=== PATIENT | female | born 1945 | race Caucasian/White ===

== ENCOUNTER 2025-03-13 10:22 | Inpatient (IN) | payer MEDICARE, SELFPAY ==
[2025-03-13] VITALS (16 sets, daily range): BP systolic 120–166; BP diastolic 71–135; PULSE 78–196; RESP 18–90; TEMP 36.3–37.2; O2SAT 89–97; BMI 31.4; BMI 27.3
--- NOTE | 2025-03-13 10:33 | PD.EDWEAK ---
ED Weakness RME/HPI General Chief complaint: Fall Stated complaint: WEAKNESS Time Seen by Provider: 03/13/25 10:33 Arrival date/time: 03/13/25 10:22 RME / HPI RME / HPI Narrative: 79 year old female with history of hypertension, s/p right hip replacement, chronic pain on Gabapentin presents to the ED BIBA from home for evaluation of weakness today. Per medics, patient reported having two ground level falls 3 days ago and since then feels left-sided heaviness . States this morning had difficulty getting out of bed, prompting ED visit. 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 States patient was given 6mg of Adenosine with no change. In the ED, patient reports 3 days ago while outside of her home her knees buckled causing her to slowly fall down; no head injury reported at that time. States she was able to get up and again while inside of her home, her knees buckled and fell. Denies any unilateral weakness, change in vision or speech. Denied any LOC 3 days ago. Denies recent illness, fevers, chills, chest pain, cough, shortness of breath, abdominal pain, n/v/d, or urinary symptoms. Related Data Allergies Allergy/AdvReac Type Severity Reaction Status Date / Time No Known Allergies Allergy Verified 03/13/25 10:32 Review of Systems Review of Systems Systems Reviewed: All systems reviewed, normal except as documented Past Medical History Past Medical History CARDIAC: Positive Hypertension MUSCULOSKELETAL: Positive Musculoskeletal Disorders and Fractures (rt hip) Surgical History SURGICAL: Positive Hip Sx Social History SMOKING STATUS: Never smoker ED Exam Narrative Physical exam: GENERAL APPEARANCE: alert and oriented x 4, well-developed, well-nourished, no acute distress HEENT: Normocephalic, atraumatic; pupils equal, round, reactive to light; EOMI; mucous membranes pink, moist; oropharynx clear NECK: Supple LUNGS: CTABL; no wheezes, no rales, no rhonchi HEART: tachycardic, irregularly irregular; normal S1, S2; no murmurs ABDOMEN: non distended; normal BS; soft, no tenderness, no guarding, no rebound; no masses, no organomegaly, no hernia BACK: no CVA tenderness EXTREMITIES: atraumatic; no edema NEUROLOGIC: awake; alert and oriented x4; cranial nerves II-XII grossly intact; no focal sensory or motor deficits PSYCHIATRIC: appropriate mood and affect SKIN: warm, dry, normal color; no rashes Course Quality Measures none Orders Category Date Time Status Biomedical Equipment Technician NOW Care 03/13/25 10:55 Active EKG (ED ONLY) *Do not use* NOW Care 03/13/25 10:29 Completed EKG (ED ONLY) *Do not use* NOW Care 03/13/25 10:55 Completed Insert IV NOW Care 03/13/25 10:29 Active EKG (ED Only) Stat Exams 03/13/25 10:29 Ordered EKG (ED Only) Stat Exams 03/13/25 10:55 Ordered XR chest 1V portable Stat Exams 03/13/25 10:55 Completed B-Type Natriuretic Peptide Stat Lab 03/13/25 10:37 Completed CBC Stat Lab 03/13/25 10:37 Completed CMP [Comprehensive Metabolic Panel] Stat Lab 03/13/25 10:37 Completed Magnesium Stat Lab 03/13/25 10:37 Completed Partial Thromboplastin Time Stat Lab 03/13/25 10:37 Completed Prothrombin Time with INR Stat Lab 03/13/25 10:37 Completed Troponin I Stat Lab 03/13/25 10:37 Completed DILTIAZEM in D5W 125 MG Med 03/13/25 10:34 Discontinued 125 mg in 125 ml IV .STK-MED DILTIAZEM in D5W 125 MG Med 03/13/25 10:30 Active 125 mg in 125 ml IV 5 mg/hr Diltiazem Inj [Cardizem Inj] Med 03/13/25 10:29 Discontinued 15 mg IV X1 ONE Diltiazem Inj [Cardizem Inj] Med 03/13/25 10:34 Discontinued 25 mg .ROUTE .STK-MED ONE Metoprolol Tartrate Inj [Lopressor Inj] Med 03/13/25 13:14 Discontinued 5 mg IVP X1 ONE Vital Signs Vital signs: Vital Signs Pulse Rate 178 H 03/13/25 10:37 Blood Pressure 166/135 H 03/13/25 10:37 Weakness MDM Narrative MDM Narrative:: Herlinda Chahal am scribing for and in the presence of Dr. Manzo. Patient data External records reviewed:: EMS form Clinical information provided by:: patient and EMS Social determinants that could affect healthcare access:: none Patient has the following chronic illnesses:: HTN, s/p right hip replacement How is presenting disease/condition affected by chronic disease/condition?: exacerbated by Evaluation data The following diagnostics were reviewed and interpreted by me:: lab results, radiology exam(s) and EKG tracing(s) (EKG @ 10:25h, atrial fibrillation with RVR, rate 179, no STEMI. ) Lab and/or radiology exams considered but not ordered:: None Interpretation Summary: Ordering Physician: Chelsy Manzo MD Date of Service: 03/13/25 Procedure(s): XR chest 1V portable Accession Number(s): [id number] cc: Leif Banuelos MD; Chelsy Manzo MD~ Examination: AP chest single view TECHNIQUE: Upright AP chest portable single view Date and time: March 13, 2025 1112 hours INDICATIONS: Chest pain today. FINDINGS: Minimal prominence left ventricle Accentuation of the perihilar markings bilaterally Left axillary surgical clips Severe osteopenia IMPRESSION: Bilateral perihilar opacity worse in the left perihilar region, differential would include pneumonia, pulmonary edema, clinical correlation advised Dictated By: Leif Banuelos MD Signed By: <Electronically signed by Leif Banuelos MD in OV> 03/13/25 1137 Medications / Prescriptions Medications or Prescriptions considered but not ordered:: None Medication administrations:: Medication Administration History Acetaminophen (Acetaminophen 325 Mg Tablet) 650 mg PO Q6H PRN PRN Reason: Fever >100.4 or Pain 1-3 Stop: 04/12/25 13:18 Heparin Sodium (Porcine) (Heparin Sod Inj 5000 Unit/Ml Vial) 5,000 unit SC Q8HR [facility] Stop: 03/27/25 13:59 Last Admin: 03/13/25 13:44 Dose: 5,000 unit Documented By: FLORES Co-signed By: DB Diltiazem HCl (Diltiazem In D5w 125 Mg) 125 mg in 125 mls @ 5 mls/hr IV .Q24H [facility] Stop: 04/12/25 10:29 Last Infusion: 03/13/25 11:41 Dose: 15 mg/hr, 15 mls/hr Documented By: Infusion: 03/13/25 11:25 Dose: 10 mg/hr, 10 mls/hr Documented By: Infusion: 03/13/25 11:01 Dose: 7 mg/hr, 7 mls/hr Documented By: Admin: 03/13/25 10:38 Dose: 5 mg/hr, 5 mls/hr Documented By: FLORES Ondansetron HCl (Ondansetron Inj 2 Mg/Ml Inj 2 Ml) 4 mg IVP Q6H PRN; Protocol PRN Reason: NAUSEA OR VOMITING Stop: 04/12/25 13:18 Discontinued Medications Diltiazem HCl (Diltiazem Inj 5 Mg/Ml Vial 5 Ml) 15 mg IV X1 ONE; Protocol Stop: 03/13/25 10:30 Last Admin: 03/13/25 10:37 Dose: 15 mg Documented By: FLORES Diltiazem HCl (Diltiazem Inj 5 Mg/Ml Vial 5 Ml) Confirm Administered Dose 25 mg .ROUTE .STK-MED ONE Stop: 03/13/25 10:35 Last Admin: 03/13/25 10:46 Dose: Not Given Documented By: DAEdelmira Non-Admin Reason: Override Medication Diltiazem HCl (Diltiazem In D5w 125 Mg) Confirm Administered Dose 125 mg in 125 mls @ ud IV .STK-MED ONE Stop: 03/13/25 10:35 Last Admin: 03/13/25 10:44 Dose: Not Given Documented By: DAA Non-Admin Reason: Override Medication Metoprolol Tartrate (Metoprolol Tartrate Inj 1 Mg/Ml Amp 5 Ml) 5 mg IVP X1 ONE Stop: 03/13/25 13:15 Last Admin: 03/13/25 13:44 Dose: 5 mg Documented By: FLORES See above Consultations Consultation(s) initiated? (list below): No Diagnosis Weakness Differential Diagnosis: acute myocardial infarction, anemia, hypoglycemia, hypothyroidism, sepsis and dehydration Most likely diagnosis given after review of the tests above:: New onset atrial fibrillation with RVR Admission Indicated Admission indicated?: indicated Admission Request Was there a request for admission?: Yes Admission Attestation Admission request attestation: Discussed case with [] from Hospitalist service regarding admission. Discussed patients ED course, exam findings, labs, and radiology results. The Hospitalist [agrees,declines] to accept the patient for admission. Disposition Plan Disposition Plan: Admit Critical Care Time Critical Care Time Critical Care Time: Yes Total Critical Care Time (min.): 35 Attestation: The high probability of sudden, clinically significant deterioration in the patient's condition required the highest level of my preparedness to intervene urgently. The services I provided to this patient were to treat and/or prevent clinically significant deterioration. Services included the following: chart data review, reviewing nursing notes and/or old charts, documentation time, market intelligence consultant collaboration regarding findings and treatment options, medication orders and management, direct patient care, vital sign assessments and ordering, interpreting and reviewing diagnostic studies and lab tests. Aggregate critical care time includes only time during which I was engaged in work directly related to the patient's care, as described above, whether at bedside or elsewhere in the Emergency Department. It did not include time spent performing other reported procedures or the services of residents, students, nurses or physician assistants. Discharge Plan Plan Patient Disposition: Admit Acute Care w/in Hospital Problem List Clinical Impression: New onset a-fib
[2025-03-13] MEDS: DILTIAZEM INJ 5 MG/ML VIAL 5 ML 15 MG IV (10:37)
[2025-03-13] MEDS: DILTIAZEM in D5W 125 MG 125 MG/125 ML BAG IV (10:38)
--- NOTE | 2025-03-13 10:55 | XR_ITS ---
Examination: AP chest single view TECHNIQUE: Upright AP chest portable single view Date and time: March 13, 2025 1112 hours INDICATIONS: Chest pain today. FINDINGS: Minimal prominence left ventricle Accentuation of the perihilar markings bilaterally Left axillary surgical clips Severe osteopenia IMPRESSION: Bilateral perihilar opacity worse in the left perihilar region, differential would include pneumonia, pulmonary edema, clinical correlation advised
--- NOTE | 2025-03-13 11:00 | PC.NURSE ---
pt brought in by ems due to weakness with left side weakness that has been for about 2 wk per pt. pt heart rate is rapid rate and irreg on monitor at 160-200bpm with ems. pt placed on defib pad and monitor at rate 160-180, pt is gcs of 15 and A&Ox4. pt also stated that she had fall x2 in the past few days and hit back of head. no bump or wound noted. pt has hx of htn. pt has denies pain but has some sob with movement. at bedside.
[2025-03-13 11:10] LABS: Basophils # (Auto) 0.1 Thou/mm3 (0.0-0.2); Basophils % (Auto) 1 % (0-2.5); Eosinophils # (Auto) 0.2 Thou/mm3 (0.0-0.5); Eosinophils % (Auto) 2 % (0-10); Hematocrit 35.1 % (36.0-46.0); Hemoglobin 11.7 g/dL (12.0-16.0); Immature Granulocytes Auto 0.01 Thou/mm3 (0.00-0.00); Lymphocytes # (Auto) 3.3 Thou/mm3 (1.0-4.8); Lymphocytes % (Auto) 37 % (10-50); Mean Corpuscular HGB Conc 33.3 g/dl (31.0-37.0); Mean Corpuscular Hemoglobin 32.3 pg (25.0-35.0); Mean Corpuscular Volume 97 fL (80-100); Monocytes # (Auto) 1.0 Thou/mm3 (0.0-0.8); Monocytes % (Auto) 11 % (0-12); Neutrophils # (Auto) 4.3 Thou/mm3 (1.8-7.7); Neutrophils % (Auto) 49 % (37-80); Nucleated Red Blood Cell # 0.00 Thou/mm3 (0.00-0.00); Nucleated Red Blood Cell % 0 /100 WBC (0); Platelet Count 228 Thou/mm3 (140-440); RDW Standard Deviation 47.7 fL (36.4-46.3); Red Blood Count 3.62 Miln/mm3 (4.00-5.20); White Blood Count 8.9 Thou/mm3 (3.6-11.0)
[2025-03-13 11:29] LABS: Alanine Aminotransferase 14 U/L (10-49); Albumin, Serum 4.3 gm/dL (3.4-4.8); Albumin/Globulin Ratio 1.4 (1.2-2.2); Alkaline Phosphatase 55 U/L (46-116); Anion Gap 13 (7-16); Aspartate Amino Transferase 23 U/L (0-34); BUN/Creatinine Ratio 10 Ratio (12-20); Bilirubin,Total 0.6 mg/dL (0.3-1.2); Blood Urea Nitrogen 10 mg/dL (9-23); Calcium 9.4 mg/dL (8.3-10.6); Calcium (Corrected) 9.4 mg/dL (8.5-10.1); Carbon Dioxide 23.2 mMol/L (20.0-31.0); Chloride 106 mMol/L (98-107); Creatinine (Component) 1.0 mg/dL (0.6-1.3); Estimated Creatinine Clearance 41.4 mL/min (>60); Globulin 3.1 gm/dL (2.3-3.5); Glucose 102 mg/dL (74-106); Magnesium 2.0 mg/dL (1.6-2.6); Osmolality,Calculated 282 (275-295); Potassium 3.9 mMol/L (3.4-5.1); Sodium 142 mMol/L (136-145); Total Protein 7.4 gm/dL (5.7-8.2); Troponin I < 0.020 ng/mL (0.0-0.045); eGFR 58 See Note
[2025-03-13 11:31] LABS: INR 1.0 (0.9-1.3); Partial Thromboplastin Time 24.7 Seconds (22.0-36.0); Prothrombin Time 11.3 Seconds (9.0-12.2)
[2025-03-13 11:38] LABS: B-Type Natriuretic Peptide 504 pg/mL (0-100)
--- NOTE | 2025-03-13 11:41 | PC.NURSE ---
pt heart rate not decreasing with iv medication heart rate still afib rvr jumping to 120-160 bpm. md aware and pt increased diltiazem to 15mg/hr per md order. pt placed on 2l o2 due to pt c/o sob, bp 120/84
--- NOTE | 2025-03-13 13:22 | ECHO_ITS ---
Transthoracic Echo Report Ht (in): 60 Wt (lb): 160 Exam Location: Echo Lab Status: Emergency Dry Wall Finisher: Rosalba Figueredo Indications: Procedure Performed: BP: 162 / 111 HR: MEASUREMENTS (Male / Female) Normal Values 2D ECHO LV Diastolic Diameter PLAX 4.7 cm 4.2 - 5.9 / 3.9 - 5.3 cm LV Systolic Diameter PLAX 2.7 cm IVS Diastolic Thickness 1.0 cm 0.6 - 1.0 / 0.6 - 0.9 cm LVPW Diastolic Thickness 0.9 cm 0.6 - 1.0 / 0.6 - 0.9 cm LV Relative Wall Thickness 0.4 LVOT Diameter 1.6 cm Aortic Root Diameter 3.1 cm LA Systolic Diameter LX 3.1 cm 3.0 - 4.0 / 2.7 - 3.8 cm LV Ejection Fraction MOD BP 57.9 % >= 55 % LV Ejection Fraction MOD 4C 65.2 % LV Ejection Fraction 4C AL 66.4 % LV Ejection Fraction MOD 2C 51.2 % LV Ejection Fraction 2C AL 50.4 % LA Volume Index 17.8 cm?/m? 16 - 28 cm?/m? M-MODE Aortic Root Diameter MM 2.4 cm LA Systolic Diameter MM 2.8 cm LA Ao Ratio MM 1.2 AV Cusp Separation MM 0.9 cm DOPPLER AV Peak Velocity 124.2 cm/s AV Peak Gradient 6.2 mmHg AV Mean Gradient 3.3 mmHg AV Velocity Time Integral 27.7 cm LVOT Peak Velocity 65.9 cm/s LVOT Peak Gradient 1.7 mmHg LVOT Velocity Time Integral 17.2 cm AV Area Cont Eq vti 1.2 cm? AV Area Cont Eq pk 1.1 cm? MR Peak Velocity 598.0 cm/s MR Peak Gradient 143.0 mmHg LV E' Lateral Velocity 9.9 cm/s LV E' Septal Velocity 9.3 cm/s TR Peak Velocity 252.0 cm/s TR Peak Gradient 25.4 mmHg PV Peak Velocity 61.1 cm/s PV Peak Gradient 1.5 mmHg FINDINGS Left Ventricle Normal left ventricular size, wall thickness, systolic function with no obvious regional wall motion abnormalities.The ejection fraction is visually estimated at 55-60 %. Unable to evaluate diastolic function due to atrial fibrillation. Right Ventricle The right ventricle is normal in size and systolic function is moderately decreased. Left Atrium The left atrium is normal by two-dimensional, color flow and Doppler imaging with no structural abnormalities, no thrombus formation present. Right Atrium The right atrium is normal by two-dimensional imaging, color flow and Doppler imaging with no structural abnormalities, no thrombus formation present. Atrial Septum The interatrial septum appears normal with no evidence of a shunt. Aorta The aorta is normal by two-dimensional, color flow and Doppler interrogation. Mitral Valve The mitral valve is normal by two-dimensional, color flow and Doppler interrogation. [id number] mitral regurgitation. Aortic Valve The aortic valve is trileaflet and normal by two-dimensional, color flow and Doppler interrogation. Trace to mild aortic valve regurgitation. Tricuspid Valve The tricuspid valve is normal by two-dimensional, color flow and Doppler interrogation. There is mild tricuspid valve regurgitation. Pulmonic Valve The pulmonic valve is not well visualized. There is no significant pulmonic valve regurgitation. Vessels The pulmonary artery appears normal. The inferior vena cava pulmonary and hepatic veins appear normal. Pericardium The pericardium is normal by two-dimensional imaging. There is no significant pericardial effusion. CONCLUSIONS Indication: New onset A-Fib RVR Normal LV size and wall thickness. Estimated EF at 55-60 %. Unable to evaluate diastolic function due to atrial fibrillation. The RV is normal in size and systolic function is mildly decreased. [id number] MR. Trace to mild AI. Mild TR. Moderate AV sclerosis without stenosis. Trace pericardial effusion without tamponade. Stalin Alonzo (Electronically Signed) Final Date: 14 March 2025 21:27
[2025-03-13] MEDS: METOPROLOL TARTRATE INJ 1 MG/ML AMP 5 ML 5 MG IVP (13:44)
[2025-03-13] MEDS: HEPARIN SOD INJ 5000 UNIT/ML VIAL SC ×2 (13:44→21:14)
--- NOTE | 2025-03-13 14:05 | ESHP_ITS ---
<Statement entered by Tracy Potts MD - 03/19/25 09:12> I reviewed above note and agree with findings and plans. I have also personally examined the patient with medicine team and went over assessment and plan with medical team including internet network specialist and resident physician. <Statement entered by Tamiko Wu MD - 03/15/25 15:59> Ms. Philippe is a 79-year-old female with past medical history significant for hypertension, hip replacement, chronic pain on gabapentin who came in with generalized weakness and left arm heaviness for the last 2 weeks. Patient also states that she fell on her knees after they gave out about 3 days ago. Patient be admitted for further management of new onset A-fib RVR. Pending head CT to rule out any old strokes in the past. Patient will be on a diltiazem drip and metoprolol is as needed if heart rate goes above 115. I discussed with and supervised the internet network specialist physician who took care of this patient. I personally saw and examined the patient and discussed the assessment and plan with the entire medicine team, including my attending Dr. Potts, I agree with most of the assessment and plan as documented below Tamiko Wu M.D. PGY-3 Documentation for date of: 03/13/25 HPI History of Present Illness Chief complaint: Weakness History of present illness: This is a 79 yof with a h/o htn, hip replacement, and chronic pain on gabapentin who presents to the ED with generalized weakness and some left arm heaviness. Symptoms started 3 days ago when she had a falll due to her legs giving out beneath her. She denied head strike, LOC, tunnel vision, or vertigo at that time. She had a second fall today but states she just tripped over her own leg. She endorses some left arm heaviness and tingling, but states this is very minor and is not concerned about it. She also endorses some shortness of breath as the interview is conducted. She denies vision changes, fever, cough, sick contacts, headache, N/V/D, chest pain, palpetations, abdominal pain, dysuria, increased urinary frequency, or leg swelling. Patient does not go to doctors very often as she has a slight fear of doctors. 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 -Stays active by doing housekeeping chores. -5 glasses of wine per week, plus or minus 1 or 2. -No tobacco or recreational drug use. ED Course: -Patient presented with BP 120/84, HR 164, Temp 99, RR 22, O2 96% on 2L NC, EMS recorded BP of 206/104 and HR 160-210 on telemetry. - Patient started on diltiazem drip, highest rate at 15 mg/hr, HR initially improved to around 100. - WBC 8.9, K 3.9, BUN and Cr 10 and 1.0 respectively. Trop 0.02, BNP elevated at 504. CXR showed some perihilar opacifiaction. - Hospitalist team A consulted, HR had worsened to around 130s to 150s. Metoprolol 5 mg IV was given. Exam Vital Signs Temp Pulse Resp BP Pulse Ox O2 Del Method O2 Flow Rate 99.0 F 98 22 H 143/109 H 96 Nasal Cannula 2 03/13/25 13:50 03/13/25 13:50 03/13/25 13:50 03/13/25 13:50 03/13/25 13:50 03/13/25 13:50 03/13/25 13:50 Narrative Exam General: patient laying in bed, appears slightly younger than stated age, appears slightly anxious. HEENT: . Mucosa moist. Pupils are equal and reactive to light bilaterally Cardiovascular: Normal S1 and S2. Tachycardic with irregular rhythm. No murmur appreciated Respiratory: Clear to auscultation bilaterally without wheezes or crackles. Slightly tachypneic and dyspneic on exam. Abdomen: Soft, nontender, not distended, Skin: Dry, no rashes or bruising Musculoskeletal: No gross injuries. Able to move all 4 extremities. Non edematous lower extremities. +2 DP pulses bilaterally Neuro: Alert and oriented x3. No focal neuro deficits. Intact lawyer probate and arm strength in the Bilateral UE Slightly weaker arm flexion/extension on the left, 4/5 compared to the right. No sensory deficit. Psych: Normal affect and mood, slightly anxious. Results: Labs 03/13/25 10:37 03/13/25 10:37 Labs: Short CBC 03/13/25 Range/Units 10:37 WBC 8.9 (3.6-11.0) Thou/mm3 Hgb 11.7 L (12.0-16.0) g/dL Hct 35.1 L (36.0-46.0) % Plt Count 228 (140-440) Thou/mm3 BMP 03/13/25 10:37 Sodium 142 Potassium 3.9 Chloride 106 Carbon Dioxide 23.2 BUN 10 Creatinine 1.0 Glucose 102 Calcium 9.4 Cardiac Enzymes 03/13/25 Range/Units 10:37 Troponin I < 0.020 (0.0-0.045) ng/mL Liver Function 03/13/25 Range/Units 10:37 Total Bilirubin 0.6 (0.3-1.2) mg/dL AST 23 (0-34) U/L ALT 14 (10-49) U/L Alkaline Phosphatase 55 (46-116) U/L Albumin 4.3 (3.4-4.8) gm/dL Quality Measures Quality Measures none Advance care planning discussed with:: patient Medications Home Medications and Allergies Allergies Allergy/AdvReac Type Severity Reaction Status Date / Time No Known Allergies Allergy Verified 03/13/25 10:32 Visit Medications Acetaminophen (Acetaminophen 325 Mg Tablet) 650 mg PO Q6H PRN PRN Reason: Fever >100.4 or Pain 1-3 Stop: 04/12/25 13:18 Heparin Sodium (Porcine) (Heparin Sod Inj 5000 Unit/Ml Vial) 5,000 unit SC Q8HR [facility] Stop: 03/27/25 13:59 Last Admin: 03/13/25 13:44 Dose: 5,000 unit Diltiazem HCl (Diltiazem In D5w 125 Mg) 125 mg in 125 mls @ 5 mls/hr IV .[facility]24H [facility] Stop: 04/12/25 10:29 Last Infusion: 03/13/25 11:41 Dose: 15 mg/hr, 15 mls/hr Ondansetron HCl (Ondansetron Inj 2 Mg/Ml Inj 2 Ml) 4 mg IVP Q6H PRN; Protocol PRN Reason: NAUSEA OR VOMITING Stop: 04/12/25 13:18 Discontinued Medications Diltiazem HCl (Diltiazem Inj 5 Mg/Ml Vial 5 Ml) 15 mg IV X1 ONE; Protocol Stop: 03/13/25 10:30 Last Admin: 09/16/25 10:37 Dose: 15 mg Metoprolol Tartrate (Metoprolol Tartrate Inj 1 Mg/Ml Amp 5 Ml) 5 mg IVP X1 ONE Stop: 03/13/25 13:15 Last Admin: 03/13/25 13:44 Dose: 5 mg Assessment & Plan Plan 79 yof with a h/o htn presents to the ED with generalized weakness and left arm tingling who was found to be in a-fib with RVR and admitted for a-fib management. #New Onset A-fib with RVR Newly diagnosed. Unclear how long in duration or etiology. Stable with BP of 143/103, though causing the patient mild dyspnea. Rates in the 200s on presentation, now in the 150s with diltiazem drip at 15. This patient is relatively undoctored, so minimal recorded medical history. Differential remains broad, CHF is considered given perihilar congestion, though patient denies leg swelling or orthopnea.. [id number] score is 4 which gives her a 6.7% risk of stroke/TIA/systemic embolism. HAS-BLED score is 1, low risk of bleed. -IV metoprolol push 5mg x1 in ED, can repeat if HR still elevated -Continue diltiazem drip 15 mg/hr. -Consider give digoxin 0.125 mg if rate is persistently elevated despite above interventions. -Admit tele -Consider Anticoagulation given unknown duration history. -ECHO -TSH -Lipid Panel -A1c -Cardiac consultation, appreciate recommendations. #HTN On lisinopril 10 mg. Unclear how controlled this. -Will hold lisinopril for now. #Left Hand Numbness Ongoing for the last few days to weeks. - CT Head non-con to rule out stroke given new onset a-fib. Health Maintenance: DVT prophylaxis: heparin Diet: Cardiac diet. Pacheco: No Lines: PIV CODE STATUS: Full code Disposition: Pending rate vs. rhythm control of a-fib with RVR. Patient's plan and care discussed with my attending, Tracy Potts MD. Mk Rosado DO PGY-1 ([facility] Resident)
--- NOTE | 2025-03-13 15:30 | PC.NURSE ---
report given to rfandy lind on tele floor.
--- NOTE | 2025-03-13 15:55 | PC.NURSE ---
spoken to doctor matias about med orders and that pt is on diltiazem 15mg/hr with HR of 70-110bpm. admit md wants to leave med non titrate at 15mg/hr and notify her if heart rate increases about 120bpm. md also aware of her left side arm heaviness that has been for about 2 wks per pt. pt transferred to tele floor and update given to primary nurse frandy.
--- NOTE | 2025-03-13 16:44 | XR_ITS ---
Examination: CT brain head without contrast. 2-D sagittal coronal reconstructions Date and time of exam:March 13, 2025, 1729 hrs. Indications: Left arm weakness and paresthesias beginning 3 days ago CTDI: vol (mGy):45.8 DLP: (mGycm):886 Technique: Multiple CT axial sections of the brain have been obtained, 5 mm slice thickness. Contrast has not been administered. 2-D sagittal, coronal reconstructions have been obtained Low dose protocols were performed. One or more of the following dose reduction techniques were used; automated exposure control, adjustment of the mA and/or KV according to patient size, use of iterative reconstruction technique. Findings: No significant ventricular enlargement. Findings most consistent with large areas of encephalomalacia in the right frontal parietal and right occipital lobe but clinical correlation advised Intra-axial or extra-axial hemorrhage density is not seen. No mass effect or midline shift Basal cisterns are not remarkable. Fourth ventricle is midline. Cranial vault intact. Impression: Negative for acute hemorrhage, mass effect or midline shift Large areas of low density in the right frontal parietal and right occipital lobe which appear to be old but the appearance should be clinically correlated Brain MRI follow-up would best assess for acute ischemic change
[2025-03-13] MEDS: FUROSEMIDE INJ 10 MG/ML VIAL 2 ML 20 MG IVP ×2 (17:03→21:08)
--- NOTE | 2025-03-13 17:28 | PD.RESCONSUL ---
HPI Data of Consult Requesting Physician: Tracy Potts MD Admitting Provider: Tracy Potts MD Attending Provider: Tracy Potts MD Primary Care Provider: Lety Warner MD Consult Narrative Reason for consult: A-fib with RVR History of present illness: HPI: 79-year-old [id number] female patient with medical history of hypertension, chronic right hip pain on gabapentin came to the ED due to an episode of lower extremity weakness 3 days before presentation. Patient reported that for the past few days she has been feeling unwell with nonspecific symptoms. 3 days ago she started to feel weakness on her left upper extremity. There was no sensory changes. Her symptoms continued however later on that day when she was walking outside her home she felt that her knees gave out and she had to sit down. She denied any fall, sweating, blurry vision, chest pain or shortness of breath. After she sat down she was unable to hold on a wall on her side and she was able to stand up again and went back home. She reported that since that episode she feels that she is unable to lock her knees and became more weak. She reported the this is the main reason she came to the ED. She denied any history of heart problems, kidney problems, and she denied any history of strokes. At the ED patient was found to have blood pressure of 166/135, pulse rate of 178 irregularly irregular, respiratory rate of 22, temperature 98.3, saturating well on room air. CBC was only significant for hemoglobin of 11.7, WBC was normal 8.9, coagulation panel was normal, CMP was only significant for serum creatinine of 1.0, eGFR of 58, liver enzymes within normal limits, potassium was 3.9, magnesium 2.0, troponin was negative x 2, BNP is 504. Chest x-ray was normal except for bilateral perihilar opacity which can be possibly pneumonia versus pulmonary edema brain CT scan was done and showed large areas of low densities in the right frontal parietal and right occipital lobe old versus new. Radiologist recommended MRI. Patient was given diltiazem push however patient did not improve and heart rate continued to be above 130, for that reason patient was started on diltiazem drip and she was maxed to 15 mg/h, for that reason primary team started the patient on x 1 push of metoprolol 5 mg which brought down the heart rate to 100 bpm. Blood pressure throughout the treatment was stable. Home medications:Lisinopril, gabapentin PMH:As above PSX: Hep replacement surgery of the right side Social hx: Alcohol: Daily wine 1-2 drinks Tobacco: Smoked few cigarettes when she was a teenager for 1 year only had quit Illicit drugs: Denied Allergies: No known allergies cc:: cc: Tracy Potts MD Review of Systems Review of Systems Systems Reviewed: All systems reviewed, normal except as documented Exam Vital Signs Temp Pulse Resp BP Pulse Ox O2 Del Method O2 Flow Rate 97.6 F 80 19 139/78 H 95 Nasal Cannula 2 03/13/25 16:00 03/13/25 17:03 03/13/25 16:00 03/13/25 17:03 03/13/25 16:00 03/13/25 16:00 03/13/25 16:00 Narrative Exam GEN: AOx2, able to speak full sentences HEENT: NC/AC, oral mucosa moist, neck supple CVS: RRR, S1-S2 present, no murmurs appreciated RESP: CTAB GI: soft,non distended, non tender, NBS MSK: able to move all 4 limbs, no lower extremity edema SKIN: warm and dry ARCHITECTURAL INSPECTOR: CN II-XII and Sensation grossly intact. Results Labs 03/13/25 10:37 03/13/25 10:37 Labs: Short CBC 03/13/25 Range/Units 10:37 WBC 8.9 (3.6-11.0) Thou/mm3 Hgb 11.7 L (12.0-16.0) g/dL Hct 35.1 L (36.0-46.0) % Plt Count 228 (140-440) Thou/mm3 BMP 03/13/25 10:37 Sodium 142 Potassium 3.9 Chloride 106 Carbon Dioxide 23.2 BUN 10 Creatinine 1.0 Glucose 102 Calcium 9.4 Cardiac Enzymes 03/13/25 Range/Units 10:37 Troponin I < 0.020 (0.0-0.045) ng/mL Liver Function 03/13/25 Range/Units 10:37 Total Bilirubin 0.6 (0.3-1.2) mg/dL AST 23 (0-34) U/L ALT 14 (10-49) U/L Alkaline Phosphatase 55 (46-116) U/L Albumin 4.3 (3.4-4.8) gm/dL Quality Measures Quality Measures none Advance care planning discussed with:: patient Medications Home Medications and Allergies Home Medications ?Medication ?Instructions ?Recorded ?Confirmed ?Type gabapentin 300 mg capsule 300 mg PO BID 03/13/25 03/13/25 History lisinopril 10 mg tablet 10 mg PO QDAY 03/13/25 03/13/25 History Allergies Allergy/AdvReac Type Severity Reaction Status Date / Time No Known Allergies Allergy Verified 03/13/25 10:32 Visit Medications Acetaminophen (Acetaminophen 325 Mg Tablet) 650 mg PO Q6H PRN PRN Reason: Fever >100.4 or Pain 1-3 Stop: 04/12/25 13:18 Heparin Sodium (Porcine) (Heparin Sod Inj 5000 Unit/Ml Vial) 5,000 unit SC Q8HR CATARINA Stop: 03/27/25 13:59 Last Admin: 03/13/25 13:44 Dose: 5,000 unit Diltiazem HCl (Diltiazem In D5w 125 Mg) 125 mg in 125 mls @ 5 mls/hr IV .Q24H CATARINA Stop: 04/12/25 10:29 Last Infusion: 03/13/25 11:41 Dose: 15 mg/hr, 15 mls/hr Ondansetron HCl (Ondansetron Inj 2 Mg/Ml Inj 2 Ml) 4 mg IVP Q6H PRN; Protocol PRN Reason: NAUSEA OR VOMITING Stop: 04/12/25 13:18 Discontinued Medications Diltiazem HCl (Diltiazem Inj 5 Mg/Ml Vial 5 Ml) 15 mg IV X1 ONE; Protocol Stop: 03/13/25 10:30 Last Admin: 03/13/25 10:37 Dose: 15 mg Furosemide (Furosemide Inj 10 Mg/Ml Vial 2 Ml) 20 mg IVP X1 ONE Stop: 03/13/25 16:33 Last Admin: 03/13/25 17:03 Dose: 20 mg Metoprolol Tartrate (Metoprolol Tartrate Inj 1 Mg/Ml Amp 5 Ml) 5 mg IVP X1 ONE Stop: 03/13/25 13:15 Last Admin: 03/13/25 13:44 Dose: 5 mg Assessment & Plan Plan Summary: 79-year-old [id number] female patient with medical history of hypertension, chronic right hip pain on gabapentin came to the ED due to an episode of lower extremity weakness 3 days before presentation. Patient reported that for the past few days she has been feeling unwell with nonspecific symptoms. Patient was found to have A-fib with RVR, patient was also admitted for stroke workup. #A-fib with RVR #Pulmonary congestion Patient presented with left-sided weakness of the upper extremity, she also reported bilateral lower extremity weakness for more than 3 days. Patient was oriented x 2. Patient has never had an EKG in the past, and has never seen a primary care physician since her hip surgery which was many years ago Chest x-ray showed bilateral pulmonary congestion, positive B-lines CT scan of the brain showed hypodensity areas on the frontal, parietal, occipital lobe on the right side. We believe that the patient might have long history of undiagnosed A-fib which resulted in subtle stroke. Echo In 2019 showed normal ejection fraction of 60 to 65%, showed also mild mitral, aortic, tricuspid regurgitation. Plan ? Continue the patient on diltiazem drip 15 mg/h tomorrow morning we will transition the patient to metoprolol p.o. 150 mg. ? Can give the patient metoprolol IV push 5 mg x 1 F patient go back to A-fib with RVR and blood pressure SBP more than 110 mmHg. ? Echocardiogram was ordered ? Start the patient on Lasix 20 mg IV daily ? Strict in and out ? Will consider starting the patient on anticoagulation after MRI rule out stroke and after neurology recommendations #Stroke rule out Plan ? MRI was ordered ? Patient was started on aspirin 81 mg, atorvastatin 40 mg p.o. daily ? Neurology team was consulted, pending recommendations #History of hypertension Patient on lisinopril at home. #History of right hip fracture status post hip replacement surgery On gabapentin. Thank you for your consultation, please do not hesitate to reach out if you have any question or concerns. - Patient's plan and care discussed with my attending, Dr. Cheri Rendon MD Internal Medicine PGY-3 Attending Provider Attestation/Addendum I have personally seen and examined the patient separately on the above date of service and discussed the plan of care with the resident. I reviewed the resident Dr. Rendon consultation progress note and agree with the resident findings and plan in the note above and have also edited the documentation to reflect my findings and plan. A 74-year-old female with a past medical history of essential hypertension lisinopril, osteoarthritis status post right hip replacement at [facility], peripheral neuropathy and gabapentin secondary to right hip pain presented to the emergency department for further evaluation of left-sided and weakness for the last 3 days. As per the family patient has also been mildly confused over the last 7 to 10 days. Patient does not see doctors regularly and that was last seen when she had right hip issues in 2019 and since then only follows as needed with the primary doctor. Patient was apparently working outside her home when she felt her knees gave out and she had to sit down. Denies any kind of syncope fall. Denies any chest pain chest pressure shortness of breath orthopnea PND or dizziness or leg swelling. Denies any kind of blackouts or any loss of consciousness or any tonic-clonic movements. Patient still continued to be weak after that and hence was brought to the emergency department for further evaluation. In the emergency department blood pressure was elevated 166/135 mmHg and was found to be in atrial fibrillation with RVR with a heart rate of around 160s and 180 mmHg. Afebrile respiratory rate of 22 and saturating well on room air. Hemoglobin normal low at 11.7. WBC normal. CMP showed creatinine of 1.0. Potassium 3.9 magnesium 2.0. Troponin 2 sets were negative. BNP was elevated at 504. Chest x-ray did show mild vascular congestion along with curly B-lines indicating fluid overload state. EKG did show atrial fibrillation with RVR but no evidence of any acute ST-T changes. CT scan of the brain showed large areas of low-density in the right frontal parietal as well as right occipital lobe old versus new. An MRI was recommended which is pending at the present point of time. Recommendations-patient is in atrial fibrillation with RVR and was started on diltiazem IV drip and at max rate 15 mg/h which we recommend to continue as heart rate appears to be well-controlled at the present point of time. Keep potassium greater than 4 and magnesium greater than 2.0 at all times. Recommend to change to metoprolol XL 100 twice daily for further heart rate control. No anticoagulation was started in view of possible hemorrhagic conversion of large infarcts. MRI will help distinguish between the acute and chronic infarcts and the risk of hemorrhage should be addressed by the neurology. Once neurology clears patient should be started on anticoagulation heparin drip initially and then eventually can be transition to oral Eliquis 5 mg twice daily. Check free T4 TSH and lipid profile for further cardiac risk stratification. Patient did have some shortness of breath and chest x-ray does show mild vascular congestion along with beatriz B-lines. BNP was also elevated at 504. Patient mostly has CHF exacerbation mostly diastolic CHF in the setting of atrial fibrillation. Check echocardiogram to evaluate LV function and RV function as well as diastolic function. Strict input output Daily weights and 2 g sodium diet. Recommend IV Lasix 40 mg x 1 for now. Keep potassium greater than 4 and magnesium greater than 2.0 at all times. Rule out acute stroke-patient to consult neurology for further evaluation and recommendations regarding anticoagulation. Management of rest of the medical conditions as per primary team and other consultants. Thank you for the consult and allowing me to participate in the care of the patient. Cardiology will continue to follow. Stalin Alonzo M.D. Interventional Cardiology
[2025-03-13 18:27] LABS: Troponin I < 0.020 ng/mL (0.0-0.045)
[2025-03-13] MEDS: DILTIAZEM in D5W 125 MG 125 MG/125 ML BAG 15 MG IV (19:31)
[2025-03-13] MEDS: ASPIRIN EC 81 MG TABEC PO (21:09)
[2025-03-13] MEDS: ATORVASTATIN CALCIUM 20 MG TABLET 40 MG PO (21:09)
[2025-03-13] MEDS: MELATONIN 3 MG TABLET 6 MG PO (22:13)
[2025-03-14] VITALS (13 sets, daily range): BP systolic 104–131; BP diastolic 58–88; PULSE 64–110; RESP 17–90; TEMP 36.1–36.2; O2SAT 90–98; BMI 14.0
--- NOTE | 2025-03-14 | XR_ITS ---
Examinations: MRI Brain without intravenous contrast. MRI brain with intravenous contrast MRA brain with intravenous contrast. MRA brain without intravenous contrast MRA neck with intravenous contrast Date and time of exam: March 14, 2025 0929 hours INDICATIONS: Onset left arm weakness and paresthesias left arm heaviness beginning 3 days ago Technique: Multiple axial and sagittal images of the brain have been obtained Siemens high-resolution 1.5 Jennifer short bore scanner is utilized. Sagittal sections, T1-weighted, TR 500, TE 14 Axial sections proton density and T2-weighted, TR 3,000, TE 34, TR 3,000, TE 91 Inversion recovery axial images, TR 9,260, TE 111, TI 2,500 Diffusion weighted images, axial sections, TR 4,800, TE 128, B value 1,000 Axial sections, ADC map, TR 4,800, TE 128. Contrast images have been obtained post intravenous 20 cc Gadolinium. T1-weighted axial and coronal images post contrast have been obtained. Angiographic images of neck and brain are obtained pre and post contrast. 3-D post processing performed, including brain, extracranial neck arterial maximum intensity projections Findings: Sellaturcica is not enlarged. The optic chiasm and infundibular stalk are not remarkable. Prepontine and interpeduncular cisterns are not enlarged. No localized enlargement of the medulla or mary. Fourth ventricle and cerebellar tonsils normal in position. Subacute hemorrhage is not seen. Fourth ventricle is midline. Mass in the cerebellopontine angle region is not evident. 7th and 8th nerve complexes exhibits symmetry. Globes are symmetrical with no retro-orbital mass. Increased white matter signal prominent Diffusion-weighted images demonstratemultiple embolic type foci restricted diffusion right frontal parietal lobe right occipital lobe. Mass-effect upon the ventricular system is not identified. Abnormal contrast enhancement is evident, mild enhancement at the site of the infarcts in the high right parietal lobe. MRA brain carotid images critical stenosis 90% at the origin of the right internal carotid artery and secondary stenosis 25 mm distal 70%, no large vessel cerebral occlusions Impression: Multiple acute embolic type infarcts right frontal parietal lobe right occipital lobe 90% stenosis proximal right internal carotid artery, possible 70% stenosis proximal right internal carotid artery 25 mm from its origin
[2025-03-14] MEDS: DILTIAZEM in D5W 125 MG 125 MG/125 ML BAG 15 MG IV (05:09)
[2025-03-14] MEDS: HEPARIN SOD INJ 5000 UNIT/ML VIAL SC (05:11)
[2025-03-14 05:58] LABS: Basophils # (Auto) 0.1 Thou/mm3 (0.0-0.2); Basophils % (Auto) 1 % (0-2.5); Eosinophils # (Auto) 0.5 Thou/mm3 (0.0-0.5); Eosinophils % (Auto) 6 % (0-10); Hematocrit 33.9 % (36.0-46.0); Hemoglobin 10.8 g/dL (12.0-16.0); Immature Granulocytes Auto 0.02 Thou/mm3 (0.00-0.00); Lymphocytes # (Auto) 2.4 Thou/mm3 (1.0-4.8); Lymphocytes % (Auto) 33 % (10-50); Mean Corpuscular HGB Conc 31.9 g/dl (31.0-37.0); Mean Corpuscular Hemoglobin 31.3 pg (25.0-35.0); Mean Corpuscular Volume 98 fL (80-100); Monocytes # (Auto) 0.9 Thou/mm3 (0.0-0.8); Monocytes % (Auto) 13 % (0-12); Neutrophils # (Auto) 3.5 Thou/mm3 (1.8-7.7); Neutrophils % (Auto) 47 % (37-80); Nucleated Red Blood Cell # 0.00 Thou/mm3 (0.00-0.00); Nucleated Red Blood Cell % 0 /100 WBC (0); Platelet Count 179 Thou/mm3 (140-440); RDW Standard Deviation 48.6 fL (36.4-46.3); Red Blood Count 3.45 Miln/mm3 (4.00-5.20); White Blood Count 7.4 Thou/mm3 (3.6-11.0)
[2025-03-14 06:16] LABS: Glucose Estimated Average 108 mg/dL (80-131); Hemoglobin A1C 5.4 % Hgb (4.8-6.0)
[2025-03-14 06:52] LABS: Alanine Aminotransferase 15 U/L (10-49); Albumin, Serum 3.9 gm/dL (3.4-4.8); Albumin/Globulin Ratio 1.5 (1.2-2.2); Alkaline Phosphatase 47 U/L (46-116); Anion Gap 12 (7-16); Aspartate Amino Transferase 30 U/L (0-34); BUN/Creatinine Ratio 7 Ratio (12-20); Bilirubin,Total 0.6 mg/dL (0.3-1.2); Blood Urea Nitrogen 7 mg/dL (9-23); Calcium 9.0 mg/dL (8.3-10.6); Calcium (Corrected) 9.1 mg/dL (8.5-10.1); Carbon Dioxide 27.0 mMol/L (20.0-31.0); Cardiac Risk Estimate 2.3 RATIO (3.7-5.6); Chloride 103 mMol/L (98-107); Cholesterol 123 mg/dL (132-200); Creatinine (Component) 1.0 mg/dL (0.6-1.3); Estimated Creatinine Clearance 39.4 mL/min (>60); Globulin 2.6 gm/dL (2.3-3.5); Glucose 108 mg/dL (74-106); HDL Cholesterol 54 mg/dL (40-60); LDL Cholesterol,Calculated 54 mg/dL (0-130); Magnesium 1.6 mg/dL (1.6-2.6); Osmolality,Calculated 282 (275-295); Phosphorous 4.4 mg/dL (2.4-5.1); Potassium 3.9 mMol/L (3.4-5.1); Sodium 142 mMol/L (136-145); Thyroid Stimulating Hormone 2.97 uIU/mL (0.55-4.78); Total Protein 6.5 gm/dL (5.7-8.2); Triglycerides 77 mg/dL (30-150); eGFR 58 See Note
[2025-03-14] MEDS: FUROSEMIDE INJ 10 MG/ML VIAL 2 ML 20 MG IVP (08:17)
[2025-03-14] MEDS: Magnesium Sulfate 4 GM Ivpb 4 GM/50 ML BAG IV (08:17)
[2025-03-14] MEDS: ASPIRIN EC 81 MG TABEC PO (08:18)
[2025-03-14] MEDS: METOPROLOL SUCCINATE XL 25 MG TABCR 100 MG PO ×2 (08:49→20:36)
--- NOTE | 2025-03-14 09:29 | PC.SS ---
Update: Plan is for the patient to obtain an MRI today.
--- NOTE | 2025-03-14 09:33 | PD.RESPRO ---
Documentation for date of: 03/14/25 Subjective Subjective Interval history: Patient was seen and examined at bedside. Patient denied any symptoms, her heart rate still in A-fib however heart rate down to the 70s and 60s overnight. Denied any chest pain, patient was started on metoprolol 100 mg p.o. twice daily. Transition from diltiazem. Patient underwent MRI which showed multiple embolic stroke with right frontal parietal lobe right occipital lobe 90% stenosis proximal right internal carotid artery, possible 70% stenosis proximal right internal carotid artery 25 mm from its origin. Exam Vital Signs Temp Pulse Resp BP Pulse Ox O2 Del Method O2 Flow Rate 97.0 F 64 18 130/72 97 Nasal Cannula 2 03/14/25 08:00 03/14/25 08:49 03/14/25 08:00 03/14/25 08:49 03/14/25 08:00 03/14/25 08:00 03/14/25 08:00 Narrative Exam GEN: AOx2, able to speak full sentences HEENT: NC/AC, oral mucosa moist, neck supple CVS: RRR, S1-S2 present, no murmurs appreciated RESP: CTAB GI: soft,non distended, non tender, NBS MSK: able to move all 4 limbs, no lower extremity edema SKIN: warm and dry CAREER COORDINATOR: CN II-XII and Sensation grossly intact. Objective Labs 03/14/25 04:57 03/14/25 04:57 Labs: Laboratory Results - last 24 hr 03/13/25 03/13/25 03/14/25 10:37 17:50 04:57 WBC 8.9 7.4 RBC 3.62 L 3.45 L Hgb 11.7 L 10.8 L Hct 35.1 L 33.9 L MCV 97 98 MCH 32.3 31.3 MCHC 33.3 31.9 RDW Std Deviation 47.7 H 48.6 H Plt Count 228 179 D Neut % (Auto) 49 47 Lymph % (Auto) 37 33 [place] % (Auto) 11 13 H Eos % (Auto) 2 6 Baso % (Auto) 1 1 Neut # (Auto) 4.3 3.5 Lymph # (Auto) 3.3 2.4 [place] # (Auto) 1.0 H 0.9 H Eos # (Auto) 0.2 0.5 Baso # (Auto) 0.1 0.1 Immature Gran # (Auto) 0.01 H 0.02 H Absolute Nucleated RBC 0.00 0.00 Immature Gran % 0 0 Nucleated RBC % 0 0 PT 11.3 INR 1.0 APTT 24.7 Sodium 142 142 Potassium 3.9 3.9 Chloride 106 103 Carbon Dioxide 23.2 27.0 Anion Gap 13 12 BUN 10 7 L Creatinine 1.0 1.0 Estim Creat Clear Calc 41.4 L 39.4 L eGFR 58 L 58 L BUN/Creatinine Ratio 10 L 7 L Glucose [address] Glu mg/dL 108 Hemoglobin A1c 5.4 Calculated Osmolality 282 282 Calcium 9.4 9.0 Corrected Calcium 9.4 9.1 Phosphorus 4.4 Magnesium 2.0 1.6 Total Bilirubin 0.6 0.6 AST 23 30 ALT 14 15 Alkaline Phosphatase 55 47 Troponin I < 0.020 < 0.020 B-Natriuretic Peptide 504 H* Total Protein 7.4 6.5 Albumin 4.3 3.9 Globulin 3.1 2.6 Albumin/Globulin Ratio 1.4 1.5 Triglycerides 77 Cholesterol 123 L LDL Cholesterol, Calc 54 HDL Cholesterol 54 Cholesterol/HDL Ratio 2.3 L TSH 2.97 Quality Measures Quality Measures none Advance care planning discussed with:: patient Assessment & Plan Assessment Current Active Medications: Generic Name Dose Route Start Last Admin Trade Name Freq PRN Reason Stop Dose Admin Acetaminophen 650 mg 03/13/25 13:19 Acetaminophen 325 Mg Tablet PO 04/12/25 13:18 Q6H PRN Fever >100.4 or Pain 1-3 Aspirin 81 mg 03/13/25 18:45 03/14/25 08:18 Aspirin Ec 81 Mg Tabec PO 04/12/25 18:44 81 mg QDAY CATARINA Administration Atorvastatin Calcium 40 mg 03/13/25 21:00 03/13/25 21:09 Atorvastatin Calcium 20 Mg Tablet PO 04/12/25 20:59 40 mg HS CATARINA Administration Furosemide 20 mg 03/13/25 21:00 03/14/25 08:17 Furosemide Inj 10 Mg/Ml Vial 2 Ml IVP 04/12/25 20:59 20 mg QDAY CATARINA Administration Heparin Sodium (Porcine) 5,000 unit 03/13/25 14:00 03/14/25 05:11 Heparin Sod Inj 5000 Unit/Ml Vial SC 03/27/25 13:59 5,000 unit Q8HR CATARINA Administration Diltiazem HCl 125 mg in 125 mls @ 5 mls/hr 03/13/25 10:30 03/14/25 05:09 Diltiazem In D5w 125 Mg IV 04/12/25 10:29 15 mg/hr .Q24H CATARINA 15 mls/hr 5 MG/HR Administration Magnesium Sulfate 4 gm in 50 mls @ 12.5 mls/hr 03/14/25 07:56 03/14/25 08:17 Magnesium Sulfate Ivpb IV 03/14/25 11:55 12.5 mls/hr X1 ONE Administration Melatonin 6 mg 03/13/25 22:00 03/13/25 22:13 Melatonin 3 Mg Tablet PO 04/12/25 21:59 6 mg HS CATARINA Administration Metoprolol Succinate 100 mg 03/14/25 09:00 03/14/25 08:49 Metoprolol Succinate Xl 25 Mg Tabcr PO 04/13/25 08:59 100 mg BID CATARINA Administration Ondansetron HCl 4 mg 03/13/25 13:19 Ondansetron Inj 2 Mg/Ml Inj 2 Ml IVP 04/12/25 13:18 Q6H PRN NAUSEA OR VOMITING Protocol Plan Summary: 79-year-old [id number] female patient with medical history of hypertension, chronic right hip pain on gabapentin came to the ED due to an episode of lower extremity weakness 3 days before presentation. Patient reported that for the past few days she has been feeling unwell with nonspecific symptoms. Patient was found to have A-fib with RVR, patient was also admitted for stroke workup. #A-fib with RVR #Pulmonary congestion #Acute right-sided multi embolic stroke Patient presented with left-sided weakness of the upper extremity, she also reported bilateral lower extremity weakness for more than 3 days. Patient was oriented x 2. Patient has never had an EKG in the past, and has never seen a primary care physician since her hip surgery which was many years ago Chest x-ray showed bilateral pulmonary congestion, positive B-lines CT scan of the brain showed hypodensity areas on the frontal, parietal, occipital lobe on the right side. We believe that the patient might have long history of undiagnosed A-fib which resulted in subtle stroke. Echo In 2019 showed normal ejection fraction of 60 to 65%, showed also mild mitral, aortic, tricuspid regurgitation. [id number] score of 4 points, has bled score is 4 point with risk of major bleed 8.9% 03/14/2025 patient underwent MRI which showed multiple embolic stroke with right frontal parietal lobe right occipital lobe. 90% stenosis proximal right internal carotid artery, possible 70% stenosis proximal right internal carotid artery 25 mm from its origin. Plan ? Transition to metoprolol 100 mg p.o. XL twice daily ? Patient was started on aspirin and Eliquis by the primary team as per the neurology recommended ? Can give the patient metoprolol IV push 5 mg x 1 F [facility] with R[facility] and blood pressure SBP more than 110 mmHg. ? Echocardiogram was ordered, pending result. Patient most likely will need ANI due to her multiple embolic stroke ? Continue the patient on Lasix 20 mg IV daily. ? Strict in and out ? Will consider starting the patient on anticoagulation after MRI rule out stroke and after neurology recommendations #History of hypertension Patient on lisinopril at home. #History of right hip fracture status post hip replacement surgery On gabapentin. Thank you for your consultation, please do not hesitate to reach out if you have any question or concerns. - Patient's plan and care discussed with my attending, Dr. Cheri Rendon MD Internal Medicine PGY-3 Attending Provider Attestation/Addendum I have personally seen and examined the patient separately on the above date of service and discussed the plan of care with the resident. I reviewed the resident Dr. Rendon consultation progress note and agree with the resident findings and plan in the note above and have also edited the documentation to reflect my findings and plan. Patient seen and examined at bedside. Admitted reviewed on patient condition in atrial fibrillation with heart rate is well-controlled on the recommend to discontinue diltiazem drip and start the patient on metoprolol XL 100 mg p.o. twice daily. Continue to monitor blood pressure. Keep potassium greater than 4 magnesium greater than 2.0. Neurology recommended to start the patient on anticoagulation and patient started on Eliquis 5 mg twice daily for anticoagulation. Continue to monitor telemetry. MRI completed today and final reading by radiology showed multiple acute embolic type infarcts right frontal parietal lobe right occipital lobe. 90% stenosis proximal right internal carotid artery, possible 70% stenosis and proximal right internal carotid artery 25 mm from its origin. Patient also had bilateral carotid duplex done and it shows no evidence of any stenosis and the velocities appear to be normal. Mostly in the CT appearance of the carotid artery possibly is an artifact and recommend primary team to review both the studies again with radiology. ANI only if recommended by neurology. Further management of stroke as per primary team as well as neurology teams. Stalin Alonzo M.D. Interventional Cardiology
--- NOTE | 2025-03-14 11:06 | ESPR_ITS ---
<Statement entered by Tracy Potts MD - 03/19/25 09:13> I reviewed above note and agree with findings and plans. I have also personally examined the patient with medicine team and went over assessment and plan with medical team including senior internal auditor and resident physician. <Statement entered by Tamiko Wu MD - 03/14/25 16:04> I discussed with and supervised the senior internal auditor physician who took care of this patient. I personally saw and examined the patient and discussed the assessment and plan with the entire medicine team, including my attending Dr. Potts, I agree with most of the assessment and plan as documented below Tamiko Wu M.D. PGY-3 Documentation for date of: 03/14/25 Subjective Subjective Interval history: Patient examined at bedside. NAOE. States she is doing ok today, no concerns. Patient's HR and BP were stable on diltiazem drip at 15 mg/hr last night. She was transitioned to metoprolol 100 mg BID and diltiazem was titrated down to discontinuation. CT Head non-con showed Large areas of low density in the right frontal parietal and right occipital lobe which appear to be old, No acute infarct or hemorrhage. MRI of the brain showed Multiple acute embolic type infarcts right frontal parietal lobe right occipital lobe with 90% stenosis proximal right internal carotid artery, possible 70% stenosis proximal right internal carotid artery 25 mm from its origin Doppler US of the carotids showed Right internal carotid artery demonstrates 0- 10% stenosis. Left internal carotid artery demonstrates 0-10% stenosis. Neurology consulted, recommended anticoagulation and aspirin. Anticoagulation with apixaban. Lipitor started PT eval initiated. Furosemide 20 mg qday per cardiology Exam Vital Signs Temp Pulse Resp BP Pulse Ox O2 Del Method O2 Flow Rate 97.0 F 64 18 130/72 97 Nasal Cannula 2 03/14/25 08:00 03/14/25 09:00 03/14/25 09:00 03/14/25 08:49 03/14/25 09:00 03/14/25 08:00 03/14/25 09:00 Narrative Exam General: Elderly patient, no acute distress, conversational. HEENT: Mucosa moist. Pupils are equal Cardiovascular: Irregular rhythm but normal rate on tele. Respiratory: No tachypnea or labored speech. Abdomen: Soft, not distended, Skin: Dry, no rashes or bruising Musculoskeletal: No gross injuries. Able to move all 4 extremities. Non edematous lower extremities. Neuro: Alert and oriented x3. Very subtle weakness of the left arm in molder inflated ball strength. Psych: Normal affect and mood Objective Labs 03/14/25 04:57 03/14/25 04:57 Labs: Laboratory Results - last 24 hr 03/13/25 03/13/25 03/14/25 10:37 17:50 04:57 WBC 8.9 7.4 RBC 3.62 L 3.45 L Hgb 11.7 L 10.8 L Hct 35.1 L 33.9 L MCV 97 98 MCH 32.3 31.3 MCHC 33.3 31.9 RDW Std Deviation 47.7 H 48.6 H Plt Count 228 179 D Neut % (Auto) 49 47 Lymph % (Auto) [address] [place] % (Auto) 11 13 H Eos % (Auto) 2 6 Baso % (Auto) 1 1 Neut # (Auto) 4.3 3.5 Lymph # (Auto) 3.[address] [place] # (Auto) 1.0 H 0.9 H Eos # (Auto) 0.2 0.5 Baso # (Auto) 0.1 0.1 Immature Gran # (Auto) 0.01 H 0.02 H Absolute Nucleated RBC 0.00 0.00 Immature Gran % 0 0 Nucleated RBC % 0 0 PT 11.3 INR 1.0 APTT 24.7 Sodium 142 142 Potassium 3.9 3.9 Chloride 106 103 Carbon Dioxide 23.2 27.0 Anion Gap 13 12 BUN 10 7 L Creatinine 1.0 1.0 Estim Creat Clear Calc 41.4 L 39.4 L eGFR 58 L 58 L BUN/Creatinine Ratio 10 L 7 L Glucose [address] Glu mg/dL 108 Hemoglobin A1c 5.4 Calculated Osmolality 282 282 Calcium 9.4 9.0 Corrected Calcium 9.4 9.1 Phosphorus 4.4 Magnesium 2.0 1.6 Total Bilirubin 0.6 0.6 AST 23 30 ALT 14 15 Alkaline Phosphatase 55 47 Troponin I < 0.020 < 0.020 B-Natriuretic Peptide 504 H* Total Protein 7.4 6.5 Albumin 4.3 3.9 Globulin 3.1 2.6 Albumin/Globulin Ratio 1.4 1.5 Triglycerides 77 Cholesterol 123 L LDL Cholesterol, Calc 54 HDL Cholesterol 54 Cholesterol/HDL Ratio 2.3 L TSH 2.97 Quality Measures Quality Measures none Advance care planning discussed with:: patient Assessment & Plan Assessment Current Active Medications: Generic Name Dose Route Start Last Admin Trade Name Freq PRN Reason Stop Dose Admin Acetaminophen 650 mg 03/13/25 13:19 Acetaminophen 325 Mg Tablet PO 04/12/25 13:18 Q6H PRN Fever >100.4 or Pain 1-3 Apixaban 5 mg 03/14/25 10:45 Apixaban 2.5 Mg Tablet PO 04/13/25 10:44 BID CATARINA Aspirin 81 mg 03/13/25 18:45 03/14/25 08:18 Aspirin Ec 81 Mg Tabec PO 04/12/25 18:44 81 mg QDAY CATARINA Administration Atorvastatin Calcium 40 mg 03/13/25 21:00 03/13/25 21:09 Atorvastatin Calcium 20 Mg Tablet PO 04/12/25 20:59 40 mg HS CATARINA Administration Furosemide 20 mg 03/13/25 21:00 03/14/25 08:17 Furosemide Inj 10 Mg/Ml Vial 2 Ml IVP 04/12/25 20:59 20 mg QDAY CATARINA Administration Diltiazem HCl 125 mg in 125 mls @ 5 mls/hr 03/13/25 10:30 03/14/25 05:09 Diltiazem In D5w 125 Mg IV 04/12/25 10:29 15 mg/hr .Q24H CATARINA 15 mls/hr 5 MG/HR Administration Magnesium Sulfate 4 gm in 50 mls @ 12.5 mls/hr 03/14/25 07:56 03/14/25 08:17 Magnesium Sulfate Ivpb IV 03/14/25 11:55 12.5 mls/hr X1 ONE Administration Melatonin 6 mg 03/13/25 22:00 03/13/25 22:13 Melatonin 3 Mg Tablet PO 04/12/25 21:59 6 mg HS CATARINA Administration Metoprolol Succinate 100 mg 03/14/25 09:00 03/14/25 08:49 Metoprolol Succinate Xl 25 Mg Tabcr PO 04/13/25 08:59 100 mg BID CATARINA Administration Ondansetron HCl 4 mg 03/13/25 13:19 Ondansetron Inj 2 Mg/Ml Inj 2 Ml IVP 04/12/25 13:18 Q6H PRN NAUSEA OR VOMITING Protocol Plan 79 yof with a h/o htn presents to the ED with generalized weakness and left arm tingling who was found to be in a-fib with RVR and admitted for a-fib management. #Acute embolic stroke #A-fib with RVR #Left Hand Heaviness Newly diagnosed. Unclear how long in duration or etiology. Stable with BP of 143/103, though causing the patient mild dyspnea. Rates in the 200s on presentation, now in the 150s with diltiazem drip at 15. This patient is relatively undoctored, so minimal recorded medical history. Differential remains broad, CHF is considered given perihilar congestion, though patient denies leg swelling or orthopnea.. [id number] score is 4 which gives her a 6.7% risk of stroke/TIA/systemic embolism. HAS-BLED score is 1, low risk of bleed. CT and MRI confirmed multiple acute embolic type infarcts. Patient's a-fib has likely been long standing and possibly paroxysmal. She is a poor historian so it is unclear how long she has been symptomatic. A-fib appears to be well controlled with diltiazem 15 mg/hr. Will transition to Metoprolol 100 BID per cardiology recommendations. -Titrate down diltiazem drip to discontinue. -Begin Metoprolol succinate 100 mg BID -Anticoagulate and begin aspirin 81mg per neurology recommendations. Starting apixaban. -Admit tele -ECHO Pending -TSH WNL, 2.97 -Lipid Panel, Cholesterol 123, LDL 54. -A1c 5.4 -Cardiac consultation, Neurology consultation, appreciate recommendations. #HTN On lisinopril 10 mg. Unclear how controlled this. -Will hold lisinopril for now. Health Maintenance: DVT prophylaxis: anticoagulated with apixaban Diet: Cardiac diet. [place]co: No Lines: PIV CODE STATUS: Full code Disposition: Pending rate control and embolic stroke workup. Patient's plan and care discussed with my attending, Tracy Potts MD. Mk Rosado, PGY-1 ([facility] Resident)
[2025-03-14] MEDS: APIXABAN 2.5 MG TABLET 5 MG PO ×2 (11:17→20:36)
--- NOTE | 2025-03-14 11:22 | XR_ITS ---
Examination: Carotid arterial duplex scan, ultrasound. Date and time of exam: March 14, 2025 1230 hours INDICATIONS: Slurred speech episodes beginning one week ago Technique: Multiple sonographic images have been obtained of the carotid arteries and vertebral arteries, B-mode/grayscale imaging and Doppler spectral analysis and color flow Peak systolic and diastolic velocities have been recorded. Systolic diastolic ratios have been calculated. Findings: Right peak systolic velocities: Distal internal carotid artery peak systolic velocity is 0.6 M/sec Proximal internal carotid artery peak systolic velocity is 0.5 M/sec Carotid bifurcation peak systolic velocity is 0.4 M/sec External carotid artery peak systolic velocity is 0.4 M/sec Vertebral artery flow is antegrade. Left peak systolic velocities: Distal internal carotid artery peak systolic velocity is 0.8 M/sec Proximal internal carotid artery peak systolic velocity is 0.8 M/sec Carotid bifurcation peak systolic velocity is 0.6 M/sec External carotid artery peak systolic velocity is 0.7 M/sec Vertebral artery flow is antegrade Doppler waveform analysis demonstrates no spectral broadening Impression: Right internal carotid artery demonstrates 0-10% stenosis. Left internal carotid artery demonstrates 0-10% stenosis.
--- NOTE | 2025-03-14 11:25 | PD.RESCONSUL ---
HPI Data of Consult Requesting Physician: Tracy Potts MD Admitting Provider: Tracy Potts MD Attending Provider: Tracy Potts MD Primary Care Provider: Lety Warner MD Consult Narrative History of present illness: This is a 79 yof with a h/o htn, hip replacement, and chronic pain on gabapentin who presents to the ED with generalized weakness and some left arm heaviness. Symptoms started 3 days ago when she had a falll due to her legs giving out beneath her. She denied head strike, LOC, tunnel vision, or vertigo at that time. She had a second fall today but states she just tripped over her own leg. She endorses some left arm heaviness and tingling, but states this is very minor and is not concerned about it. She also endorses some shortness of breath as the interview is conducted. She denies vision changes, fever, cough, sick contacts, headache, N/V/D, chest pain, palpetations, abdominal pain, dysuria, increased urinary frequency, or leg swelling. Patient does not go to doctors very often as she has a slight fear of doctors. Daughter at bedside said that she was urging patient to go for past three days, however was refusing initially. She denies any trouble w/speech including making sentences and understanding words. Does not see a hot die press operator. No other complaints at this time. ED Course: Patient presented with BP 120/84, HR 164, Temp 99, RR 22, O2 96% on 2L NC, EMS recorded BP of 206/104 and HR 160-210 on telemetry. - WBC 8.9, K 3.9, BUN and Cr 10 and 1.0 respectively. Trop 0.02, BNP elevated at 504. CXR showed some perihilar opacifiaction. Patient started on diltiazem drip, highest rate at 15 mg/hr, HR initially improved to around 100. Hospitalist consulted, HR had worsened to around 130s to 150s. Metoprolol 5 mg IV was given. 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 cc:: cc: Tracy Potts MD Exam Vital Signs Temp Pulse Resp BP Pulse Ox O2 Del Method O2 Flow Rate 97.0 F 64 18 130/72 97 Nasal Cannula 2 03/14/25 08:00 03/14/25 09:00 03/14/25 09:00 03/14/25 08:49 03/14/25 09:00 03/14/25 08:00 03/14/25 09:00 Narrative Exam General: AAOx3, NAD, pleasant elderly female HEENT: Moist mucous membranes, conjunctiva clear, EOMI, PERRLA, Cardiovascular: S1, S2, radial pulses +2 bilat, RRR Pulmonary: CTAB bilat no cough, no wheezing GI: No tenderness to light or deep palpitation, no guarding, rigidity, rebound tenderness or distension Extremities: No presence of trace or pitting edema in lower extremities bilaterally, dorsalis pedis pulses +2 bilaterally Neuro: AAOx3, decreased ROM and strength in RUE and LUE, 3/5, able to walk with assistance, no deficits from sensory level Psych: Good judgement, thought and behavior Results Labs 03/15/25 04:48 03/15/25 04:48 Labs: Short CBC 03/13/25 03/14/25 Range/Units 10:37 04:57 WBC 8.9 7.4 (3.6-11.0) Thou/mm3 Hgb 11.7 L 10.8 L (12.0-16.0) g/dL Hct 35.1 L 33.9 L (36.0-46.0) % Plt Count 228 179 D (140-440) Thou/mm3 BMP 03/13/25 03/14/25 10:37 04:57 Sodium 142 142 Potassium 3.9 3.9 Chloride 106 103 Carbon Dioxide 23.2 27.0 BUN 10 7 L Creatinine 1.0 1.0 Glucose 102 108 H Calcium 9.4 9.0 Cardiac Enzymes 03/13/25 03/13/25 Range/Units 10:37 17:50 Troponin I < 0.020 < 0.020 (0.0-0.045) ng/mL Liver Function 03/13/25 03/14/25 Range/Units 10:37 04:57 Total Bilirubin 0.6 0.6 (0.3-1.2) mg/dL AST 23 30 (0-34) U/L ALT 14 15 (10-49) U/L Alkaline Phosphatase 55 47 (46-116) U/L Albumin 4.3 3.9 (3.4-4.8) gm/dL Quality Measures Quality Measures none Advance care planning discussed with:: patient Medications Home Medications and Allergies Home Medications ?Medication ?Instructions ?Recorded ?Confirmed ?Type gabapentin 300 mg capsule 300 mg PO BID 03/13/25 03/13/25 History lisinopril 10 mg tablet 10 mg PO QDAY 03/13/25 03/13/25 History Allergies Allergy/AdvReac Type Severity Reaction Status Date / Time No Known Allergies Allergy Verified 03/13/25 10:32 Visit Medications Acetaminophen (Acetaminophen 325 Mg Tablet) 650 mg PO Q6H PRN PRN Reason: Fever >100.4 or Pain 1-3 Stop: 04/12/25 13:18 Apixaban (Apixaban 2.5 Mg Tablet) 5 mg PO BID CATARINA Stop: 04/13/25 10:44 Last Admin: 03/14/25 11:17 Dose: 5 mg Aspirin (Aspirin Ec 81 Mg Tabec) 81 mg PO QDAY CATARINA Stop: 04/12/25 18:44 Last Admin: 03/14/25 08:18 Dose: 81 mg Atorvastatin Calcium (Atorvastatin Calcium 20 Mg Tablet) 40 mg PO HS CATARINA Stop: 04/12/25 20:59 Last Admin: 03/13/25 21:09 Dose: 40 mg Furosemide (Furosemide Inj 10 Mg/Ml Vial 2 Ml) 20 mg IVP QDAY CATARINA Stop: 04/12/25 20:59 Last Admin: 03/14/25 08:17 Dose: 20 mg Magnesium Sulfate (Magnesium Sulfate Ivpb) 4 gm in 50 mls @ 12.5 mls/hr IV X1 ONE Stop: 03/14/25 11:55 Last Admin: 03/14/25 08:17 Dose: 12.5 mls/hr Melatonin (Melatonin 3 Mg Tablet) 6 mg PO HS CATARINA Stop: 04/12/25 21:59 Last Admin: 03/13/25 22:13 Dose: 6 mg Metoprolol Succinate (Metoprolol Succinate Xl 25 Mg Tabcr) 100 mg PO BID CATARINA Stop: 04/13/25 08:59 Last Admin: 03/14/25 08:49 Dose: 100 mg Ondansetron HCl (Ondansetron Inj 2 Mg/Ml Inj 2 Ml) 4 mg IVP Q6H PRN; Protocol PRN Reason: NAUSEA OR VOMITING Stop: 04/12/25 13:18 Discontinued Medications Diltiazem HCl (Diltiazem Inj 5 Mg/Ml Vial 5 Ml) 15 mg IV X1 ONE; Protocol Stop: 03/13/25 10:30 Last Admin: 03/13/25 10:37 Dose: 15 mg Furosemide (Furosemide Inj 10 Mg/Ml Vial 2 Ml) 20 mg IVP X1 ONE Stop: 03/13/25 16:33 Last Admin: 03/13/25 17:03 Dose: 20 mg Heparin Sodium (Porcine) (Heparin Sod Inj 5000 Unit/Ml Vial) 5,000 unit SC Q8HR CATARINA Stop: 03/27/25 13:59 Last Admin: 03/14/25 05:11 Dose: 5,000 unit Diltiazem HCl (Diltiazem In D5w 125 Mg) 125 mg in 125 mls @ 5 mls/hr IV .Q24H CATARINA Stop: 04/12/25 10:29 Last Admin: 03/14/25 05:09 Dose: 15 mg/hr, 15 mls/hr Metoprolol Tartrate (Metoprolol Tartrate Inj 1 Mg/Ml Amp 5 Ml) 5 mg IVP X1 ONE Stop: 03/13/25 13:15 Last Admin: 03/13/25 13:44 Dose: 5 mg Potassium Chloride (Potassium Chloride 20 Meq Tabcr) 40 meq PO X1 ONE Stop: 03/14/25 07:56 Last Admin: 03/14/25 08:18 Dose: 40 meq Assessment & Plan Plan Assessment: 79 yof with a h/o htn presents to the ED with generalized weakness and left arm tingling who was found to be in A-fib with RVR and admitted for a-fib management. #Acute embolic stroke with residual left-sided motor deficits #Carotid neck stenosis, bilaterally MRI 03/14/2025: Multiple acute embolic type infarcts right frontal parietal lobe right occipital lobe 90% stenosis proximal right internal carotid artery, possible 70% stenosis proximal right internal carotid artery 25 mm from its origin If pt has true stenoses, may benefit from endarterectomy or stenting from vascular surgery, needs to be performed 1-2 weeks outpatient Multiple areas affected on brain, likely 2/2 Afib A/C will include DOAC and aspirin Plan ? Aspirin 81 mg by mouth every day ? Eliquis 5 mg by mouth twice daily ? Treat underlying A-fib adequate rate control ? Cardiac stratification ? Carotid duplex bilateral ? Speech therapy ? Echo ? Neurochecks every 4 hours ? Head of bed elevation 30 degrees ? Physical therapy ? High intensity statin #HTN #A-fib with RVR Above handled by primary hospitalist team Patient seen and care discussed with my attending physician, Dr. Bryce Red, PGY-2 This document was transcribed using voice recognition technology. Minor inaccuracies may be present. Attending Provider Attestation/Addendum I personally have seen and examined the patient at the bedside and agreed with resident's findings, assessment and plan of care. Patient presented with left-sided venous and questionable weakness for few days and a CT head showed findings consistent with a subacute infarction in the right cerebral hemisphere. MRI brain findings showed multiple embolic stroke in the right cerebral hemisphere, secondary to atrial fibrillation. Continue with rate control with metoprolol, Eliquis 5 mg twice a day and aspirin 81 mg with statin. Also noted carotid artery disease with 90% stenosis on the right ICA. Will confirm the findings with the carotid Doppler. Then we need to consider evaluation by cardiology/vascular surgery for determining carotid endarterectomy versus carotid stent placement for further management and to prevent recurrence.
--- NOTE | 2025-03-14 12:59 | PC.SS ---
ENGLISH LECTURER conducted bedside contact with the patient conduct initial assessment and to discuss discharge planning.? Patient confirmed demographic information.? Patient resides at home with sister, Isabell Bunch .? Patient possesses a walker to assist with ambulation as needed.? Patient does not utilize home oxygen.? Patient currently on 2L nasal cannula.? Patient describes the ability to complete ADL?s independently.? Patient identified daughter, Renetta Elmore ; as medical surrogate decision maker.? Patient?s PCP is Dr. Warner.? Patient does not participate with dialysis.? Patient does not possess any specialty providers.? Patient utilizes [facility] for medication services.? Plan is for the patient to return home at the time of discharge.? If home oxygen required at the time of discharge, no preferred vendor identified.? If home health is recommended no preferred agency identified.? Family will provide transportation on behalf of the patient.? No further discharge needs identified by the patient.? No further intervention required at this time, social director will be available to address any further concerns.? Next of Kin: Renetta Ibanez D/C Plan: Home
[2025-03-14] MEDS: ATORVASTATIN CALCIUM 20 MG TABLET 40 MG PO (20:34)
[2025-03-14] MEDS: MELATONIN 3 MG TABLET 6 MG PO (20:35)
[2025-03-15] VITALS (20 sets, daily range): BP systolic 122–153; BP diastolic 46–117; PULSE 69–143; RESP 17–28; TEMP 36.1–36.4; O2SAT 90–99; BMI 13.0
[2025-03-15] MEDS: DiphenhydrAMINE ELIX 25 MG/10 ML UDC 12.5 MG PO (00:24)
[2025-03-15] MEDS: ACETAMINOPHEN 325 MG TABLET 650 MG PO (03:41)
[2025-03-15 06:01] LABS: Basophils # (Auto) 0.0 Thou/mm3 (0.0-0.2); Basophils % (Auto) 1 % (0-2.5); Eosinophils # (Auto) 0.4 Thou/mm3 (0.0-0.5); Eosinophils % (Auto) 4 % (0-10); Hematocrit 33.9 % (36.0-46.0); Hemoglobin 10.9 g/dL (12.0-16.0); Immature Granulocytes Auto 0.02 Thou/mm3 (0.00-0.00); Lymphocytes # (Auto) 2.3 Thou/mm3 (1.0-4.8); Lymphocytes % (Auto) 27 % (10-50); Mean Corpuscular HGB Conc 32.2 g/dl (31.0-37.0); Mean Corpuscular Hemoglobin 31.9 pg (25.0-35.0); Mean Corpuscular Volume 99 fL (80-100); Monocytes # (Auto) 1.2 Thou/mm3 (0.0-0.8); Monocytes % (Auto) 14 % (0-12); Neutrophils # (Auto) 4.7 Thou/mm3 (1.8-7.7); Neutrophils % (Auto) 55 % (37-80); Nucleated Red Blood Cell # 0.00 Thou/mm3 (0.00-0.00); Nucleated Red Blood Cell % 0 /100 WBC (0); Platelet Count 232 Thou/mm3 (140-440); RDW Standard Deviation 49.0 fL (36.4-46.3); Red Blood Count 3.42 Miln/mm3 (4.00-5.20); White Blood Count 8.5 Thou/mm3 (3.6-11.0)
[2025-03-15 06:18] LABS: Alanine Aminotransferase 12 U/L (10-49); Albumin, Serum 3.9 gm/dL (3.4-4.8); Albumin/Globulin Ratio 1.6 (1.2-2.2); Alkaline Phosphatase 51 U/L (46-116); Anion Gap 9 (7-16); Aspartate Amino Transferase 19 U/L (0-34); BUN/Creatinine Ratio 10 Ratio (12-20); Bilirubin,Total 0.5 mg/dL (0.3-1.2); Blood Urea Nitrogen 10 mg/dL (9-23); Calcium 9.0 mg/dL (8.3-10.6); Calcium (Corrected) 9.1 mg/dL (8.5-10.1); Carbon Dioxide 31.2 mMol/L (20.0-31.0); Chloride 103 mMol/L (98-107); Creatinine (Component) 1.0 mg/dL (0.6-1.3); Estimated Creatinine Clearance 39.4 mL/min (>60); Globulin 2.5 gm/dL (2.3-3.5); Glucose 106 mg/dL (74-106); Magnesium 2.2 mg/dL (1.6-2.6); Osmolality,Calculated 283 (275-295); Phosphorous 4.1 mg/dL (2.4-5.1); Potassium 3.9 mMol/L (3.4-5.1); Sodium 143 mMol/L (136-145); Total Protein 6.4 gm/dL (5.7-8.2); eGFR 58 See Note
--- NOTE | 2025-03-15 09:58 | ESPR_ITS ---
<Statement entered by Tracy Potts MD - 03/22/25 17:35> I reviewed above note and agree with findings and plans. I have also personally examined the patient with medicine team and went over assessment and plan with medical team including international organizer and resident physician. <Statement entered by Tamiko Wu MD - 03/15/25 20:36> I discussed with and supervised the international organizer physician who took care of this patient. I personally saw and examined the patient and discussed the assessment and plan with the entire medicine team, including my attending Dr. Potts, I agree with most of the assessment and plan as documented below Tamiko Wu M.D. PGY-3 Documentation for date of: 03/15/25 Subjective Subjective Interval history: Patient examined at bedside. NAOE. Patient doing well today without any new symptoms. There is question regarding the discrepancy between the carotid stenosis seen on MRA vs no stenosis seen on carotid dopplar. One thought is that the stenosis is of the ICA above the angle of mandible, therefore not seen on carotid. Will reach out to radiology for further clarification. Cardiology conducted ANI with cardioversion today, patient returned to normal sinus rhythm. - Reduced metoprolol dose to 100 mg daily, was BID dosing prior to cardioversion. - Moniter on tele. Exam Vital Signs Temp Pulse Resp BP Pulse Ox O2 Del Method O2 Flow Rate 97.5 F 108 H 19 122/81 96 Room Air 2 03/15/25 08:00 03/15/25 08:00 03/15/25 08:00 03/15/25 08:00 03/15/25 08:00 03/15/25 08:00 03/14/25 14:56 Narrative Exam General: Elderly patient, no acute distress, conversational. HEENT: Mucosa moist. Pupils are equal Cardiovascular: Irregular rhythm but normal rate on tele. No murmur or rub appreciated. Respiratory: No tachypnea or labored speech. CTA bilaterally without wheezes or crackles. Abdomen: Soft, not distended, non tender to palpation. Skin: Dry, no rashes or bruising Musculoskeletal: No gross injuries. Able to move all 4 extremities. Non edematous lower extremities. Neuro: Alert and oriented x3. 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 More prominent weakness with arm extension, 4/5. Psych: Normal affect and mood Objective Labs 03/15/25 04:48 03/15/25 04:48 Labs: Laboratory Results - last 24 hr 03/15/25 04:48 WBC 8.5 RBC 3.42 L Hgb 10.9 L Hct 33.9 L MCV 99 MCH 31.9 MCHC 32.2 RDW Std Deviation 49.0 H Plt Count 232 D Neut % (Auto) 55 Lymph % (Auto) 27 [place] % (Auto) 14 H Eos % (Auto) 4 Baso % (Auto) 1 Neut # (Auto) 4.7 Lymph # (Auto) 2.3 [place] # (Auto) 1.2 H Eos # (Auto) 0.4 Baso # (Auto) 0.0 Immature Gran # (Auto) 0.02 H Absolute Nucleated RBC 0.00 Immature Gran % 0 Nucleated RBC % 0 Sodium 143 Potassium 3.9 Chloride 103 Carbon Dioxide 31.2 H Anion Gap 9 BUN 10 Creatinine 1.0 Estim Creat Clear Calc 39.4 L eGFR 58 L BUN/Creatinine Ratio 10 L Glucose 106 Calculated Osmolality 283 Calcium 9.0 Corrected Calcium 9.1 Phosphorus 4.1 Magnesium 2.2 Total Bilirubin 0.5 AST 19 ALT 12 Alkaline Phosphatase 51 Total Protein 6.4 Albumin 3.9 Globulin 2.5 Albumin/Globulin Ratio 1.6 Quality Measures Quality Measures none Advance care planning discussed with:: patient Assessment & Plan Assessment Current Active Medications: Generic Name Dose Route Start Last Admin Trade Name Freq PRN Reason Stop Dose Admin Acetaminophen 650 mg 03/13/25 13:19 03/15/25 03:41 Acetaminophen 325 Mg Tablet PO 04/12/25 13:18 650 mg Q6H PRN Administration Fever >100.4 or Pain 1-3 Apixaban 5 mg 03/14/25 10:45 03/14/25 20:36 Apixaban 2.5 Mg Tablet PO 04/13/25 10:44 5 mg BID CATARINA Administration Aspirin 81 mg 03/13/25 18:45 03/14/25 08:18 Aspirin Ec 81 Mg Tabec PO 04/12/25 18:44 81 mg QDAY CATARINA Administration Atorvastatin Calcium 40 mg 03/13/25 21:00 03/14/25 20:34 Atorvastatin Calcium 20 Mg Tablet PO 04/12/25 20:59 40 mg HS CATARINA Administration Furosemide 20 mg 03/13/25 21:00 03/14/25 08:17 Furosemide Inj 10 Mg/Ml Vial 2 Ml IVP 04/12/25 20:59 20 mg QDAY CATARINA Administration Melatonin 6 mg 03/13/25 22:00 03/14/25 20:35 Melatonin 3 Mg Tablet PO 04/12/25 21:59 6 mg HS CATARINA Administration Metoprolol Succinate 100 mg 03/14/25 09:00 03/14/25 20:36 Metoprolol Succinate Xl 25 Mg Tabcr PO 04/13/25 08:59 100 mg BID CATARINA Administration Ondansetron HCl 4 mg 03/13/25 13:19 Ondansetron Inj 2 Mg/Ml Inj 2 Ml IVP 04/12/25 13:18 Q6H PRN NAUSEA OR VOMITING Protocol Plan 79 yof with a h/o htn presents to the ED with generalized weakness and left arm tingling who was found to be in a-fib with RVR and admitted for a-fib management. #Acute embolic stroke #A-fib with RVR #Left Upper extremity weakness Newly diagnosed. Unclear how long in duration or etiology. Stable with BP of 143/103, though causing the patient mild dyspnea. Rates in the 200s on presentation, now in the 150s with diltiazem drip at 15. This patient is relatively undoctored, so minimal recorded medical history. Differential remains broad, CHF is considered given perihilar congestion, though patient denies leg swelling or orthopnea.. [id number] score is 4 which gives her a 6.7% risk of stroke/TIA/systemic embolism. HAS-BLED score is 1, low risk of bleed. CT and MRI confirmed multiple acute embolic type infarcts. Also noted on MRA was greater than 90% stenosis of the RCA. However, carotid US demonstrated <10% stenosis of the RCA. Patient's a-fib has likely been long standing and possibly paroxysmal. She is a poor historian so it is unclear how long she has been symptomatic. A-fib appears to be well controlled with diltiazem 15 mg/hr. She was transitioned to Metoprolol 100 BID per cardiology recommendations. She was taken for ANI and cardioversion today with cardiology, was converted to normal sinus rhythm. Metoprolol titrated down from twice daily to once daily dosing. Regarding the MRA and carotid US findings, patient may have stenosis beyond the angle of mandible which would not be seen by US. Will reach out to radiology for further clarification. -Begin Metoprolol succinate 100 mg daily. -Apixaban and aspirin 81mg per neurology recommendations. -Atorvastatin given evidence of significant carotid stenosis on MRA. -ECHO Pending -TSH WNL, 2.97 -Lipid Panel, Cholesterol 123, LDL 54. -A1c 5.4 -Cardiac consultation, Neurology consultation, appreciate recommendations. #HTN On lisinopril 10 mg. Unclear how controlled this. -Will hold lisinopril for now. Health Maintenance: DVT prophylaxis: anticoagulated with apixaban Diet: Cardiac diet. [place]co: No Lines: PIV CODE STATUS: Full code Disposition: Monitor rhythm control. Patient's plan and care discussed with my attending, Tracy Potts MD. Mk Rosado, PGY-1 ([facility] Resident)
[2025-03-15] MEDS: ASPIRIN EC 81 MG TABEC PO (10:14)
[2025-03-15] MEDS: APIXABAN 2.5 MG TABLET 5 MG PO ×2 (10:14→20:23)
[2025-03-15] MEDS: METOPROLOL SUCCINATE XL 25 MG TABCR 100 MG PO (10:14)
[2025-03-15] MEDS: FUROSEMIDE INJ 10 MG/ML VIAL 2 ML 20 MG IVP (10:17)
--- NOTE | 2025-03-15 11:38 | ESPR_ITS ---
Documentation for date of: 03/15/25 Subjective Subjective Interval history: Patient examined at bedside today. No acute overnight events. Patient reports that she is doing well. She is wondering when she is in to go home. She was also wondering about her carotid duplex ultrasound results. She denies any chest pain or shortness of breath this time. She denies any chest palpitations this time. No other complaints at this time. Exam Vital Signs Temp Pulse Resp BP Pulse Ox O2 Del Method O2 Flow Rate 97.5 F 103 H 19 147/85 H 96 Room Air 2 03/15/25 08:00 03/15/25 10:17 03/15/25 08:00 03/15/25 10:17 03/15/25 08:00 03/15/25 08:00 03/14/25 14:56 Narrative Exam General: AAOx3, NAD, pleasant elderly female HEENT: Moist mucous membranes, conjunctiva clear, EOMI, PERRLA, Cardiovascular: S1, S2, radial pulses +2 bilat, RRR Pulmonary: CTAB bilat no cough, no wheezing GI: No tenderness to light or deep palpitation, no guarding, rigidity, rebound tenderness or distension Extremities: No presence of trace or pitting edema in lower extremities bilaterally, dorsalis pedis pulses +2 bilaterally Neuro: AAOx3, decreased ROM and strength in RUE and LUE, 3/5, able to walk with assistance, no deficits from sensory level Psych: Good judgement, thought and behavior Objective Labs 03/16/25 04:53 03/16/25 04:53 Labs: Laboratory Results - last 24 hr 03/15/25 04:48 WBC 8.5 RBC 3.42 L Hgb 10.9 L Hct 33.9 L MCV 99 MCH 31.9 MCHC 32.2 RDW Std Deviation 49.0 H Plt Count 232 D Neut % (Auto) 55 Lymph % (Auto) 27 [place] % (Auto) 14 H Eos % (Auto) 4 Baso % (Auto) 1 Neut # (Auto) 4.7 Lymph # (Auto) 2.3 [place] # (Auto) 1.2 H Eos # (Auto) 0.4 Baso # (Auto) 0.0 Immature Gran # (Auto) 0.02 H Absolute Nucleated RBC 0.00 Immature Gran % 0 Nucleated RBC % 0 Sodium 143 Potassium 3.9 Chloride 103 Carbon Dioxide 31.2 H Anion Gap 9 BUN 10 Creatinine 1.0 Estim Creat Clear Calc 39.4 L eGFR 58 L BUN/Creatinine Ratio 10 L Glucose 106 Calculated Osmolality 283 Calcium 9.0 Corrected Calcium 9.1 Phosphorus 4.1 Magnesium 2.2 Total Bilirubin 0.5 AST 19 ALT 12 Alkaline Phosphatase 51 Total Protein 6.4 Albumin 3.9 Globulin 2.5 Albumin/Globulin Ratio 1.6 Quality Measures Quality Measures none Advance care planning discussed with:: patient Assessment & Plan Assessment Current Active Medications: Generic Name Dose Route Start Last Admin Trade Name Freq PRN Reason Stop Dose Admin Acetaminophen 650 mg 03/13/25 13:19 03/15/25 03:41 Acetaminophen 325 Mg Tablet PO 04/12/25 13:18 650 mg Q6H PRN Administration Fever >100.4 or Pain 1-3 Apixaban 5 mg 03/14/25 10:45 03/15/25 10:14 Apixaban 2.5 Mg Tablet PO 04/13/25 10:44 5 mg BID CATARINA Administration Aspirin 81 mg 03/13/25 18:45 03/15/25 10:14 Aspirin Ec 81 Mg Tabec PO 04/12/25 18:44 81 mg QDAY CATARINA Administration Atorvastatin Calcium 40 mg 03/13/25 21:00 03/14/25 20:34 Atorvastatin Calcium 20 Mg Tablet PO 04/12/25 20:59 40 mg HS CATARINA Administration Furosemide 20 mg 03/13/25 21:00 03/15/25 10:17 Furosemide Inj 10 Mg/Ml Vial 2 Ml IVP 04/12/25 20:59 20 mg QDAY CATARINA Administration Melatonin 6 mg 03/13/25 22:00 03/14/25 20:35 Melatonin 3 Mg Tablet PO 04/12/25 21:59 6 mg HS CATARINA Administration Metoprolol Succinate 100 mg 03/14/25 09:00 03/15/25 10:14 Metoprolol Succinate Xl 25 Mg Tabcr PO 04/13/25 08:59 100 mg BID CATARINA Administration Ondansetron HCl 4 mg 03/13/25 13:19 Ondansetron Inj 2 Mg/Ml Inj 2 Ml IVP 04/12/25 13:18 Q6H PRN NAUSEA OR VOMITING Protocol Plan Assessment: 79 yof with a h/o htn presents to the ED with generalized weakness and left arm tingling who was found to be in A-fib with RVR and admitted for a-fib management. #Acute embolic stroke with residual left-sided motor deficits #Carotid neck stenosis, bilaterally MRI 03/14/2025: Multiple acute embolic type infarcts right frontal parietal lobe right occipital lobe 90% stenosis proximal right internal carotid artery, possible 70% stenosis proximal right internal carotid artery 25 mm from its origin If pt has true stenoses, may benefit from endarterectomy or stenting from vascular surgery, needs to be performed 1-2 weeks outpatient Multiple areas affected on brain, likely 2/2 Afib A/C will include DOAC and aspirin Carotid duplex shows 0 to 10% stenosis in both proximal RCA and proximal LCA, no vascular surgical intervention at this time LDL 54; A1c 5.4; TSH ~3 Echo does not demonstrate PFO at this time Plan: ? Aspirin 81 mg by mouth every day ? Eliquis 5 mg by mouth twice daily ? Treat underlying A-fib adequate rate control ? Speech therapy ? May consider ANI ? Neurochecks every 4 hours ? Head of bed elevation 30 degrees ? Physical therapy ? High intensity statin #HTN #A-fib with RVR Above handled by primary hospitalist team Patient seen and care discussed with my attending physician, Dr. Bryce Red, PGY-2 Attending Provider Attestation/Addendum I personally have seen and examined the patient at the bedside and agreed with resident's findings, assessment and plan of care. Noted patient got cardioverted and she is in sinus rhythm. Will continue with aspirin and Eliquis for now. As the carotid Doppler shows no significant stenosis on either side, we will hold off on referral to vascular surgery at this point. Patient is stable from neurology standpoint for continuing aspirin 81 mg and Eliquis for now and coordinate the care with cardiology and neurology as an outpatient. Talk to her about lifestyle changes in addition to prevent recurrence.
--- NOTE | 2025-03-15 13:10 | PC.SS ---
Update: Neurology recommendations are pending.
--- NOTE | 2025-03-15 13:11 | PC.SS ---
DRAWBENCH OPERATOR conducted bedside contact with patient. Discussed discharge options. Patient receptive to DRAWBENCH OPERATOR submitted referral for Acute Rehab in [facility] and the [facility]. DRAWBENCH OPERATOR informed patient that authorization would need to be obtained. DRAWBENCH OPERATOR to submit referral on [facility], [place].
--- NOTE | 2025-03-15 13:23 | ECHO_ITS ---
Transesophageal Echo Report Ht (in): 60 Wt (lb): 146 Exam Location: Echo Lab Status: Inpatient Shipping Room Supervisor: Allan Gonzalez Indications: Procedure Performed: BP: 158 / 118 HR: 124 Medications 5mg versed 100 fen FINDINGS Left Ventricle Global left ventricular systolic function is moderately decreased. The ejection fraction is visually estimated at 35-40 %. Right Ventricle The right ventricle is normal in size and systolic function. Left Atrium The left atrial cavity size is severely increased. Atrial Appendages The left atrial appendage appears normal with no evidence for thrombus. Atrial Septum The interatrial septum appears normal with no evidence of a shunt. No [id number] shunt demonstrated by agitated saline injection. Aorta The aorta is normal by two-dimensional, color flow and Doppler interrogation. Mitral Valve The mitral valve is normal by two-dimensional, color flow and Doppler interrogation. Severe mitral regurgitation. Aortic Valve The aortic valve is trileaflet and normal by two-dimensional, color flow and Doppler interrogation. Mild-to- moderate aortic valve regurgitation. Tricuspid Valve The tricuspid valve is normal by two-dimensional, color flow and Doppler interrogation.there is mild to moderate tricuspid valve regurgitation. Pulmonic Valve The pulmonic valve is normal by two-dimensional, color flow and Doppler interrogation. There is no significant pulmonic valve regurgitation. CONCLUSIONS Indication: Atrial fibrillation No evidence of any LA or BARRY thrombus. Bubble study negative for any PFO or ASD. Mildly decreased LV function with an EF of around 40 to 45%. Normal RV size and function. LA severely dilated. Moderate to severe MR with reversal of pulmonary flow into by 3 pulmonary veins Mild expiratory disease and mild aortic regurgitation. Stalin Alonzo (Electronically Signed) Final Date: 16 March 2025 03:43
--- NOTE | 2025-03-15 13:27 | PC.SS ---
Acute Rehab referral submitted on [facility]. Awaiting response.
[2025-03-15] MEDS: BENZOCAINE 20% (Hurricaine) SPRAY 1 DOSE TOP (14:12)
[2025-03-15] MEDS: MIDAZOLAM INJ 1 MG/ML VIAL 2 ML 5 MG IVP (14:13)
[2025-03-15] MEDS: fentaNYL CIT INJ 50 mCg/ML AMP 2ML 125 MCG IVP (14:13)
--- NOTE | 2025-03-15 16:00 | ESOP_ITS ---
Procedure Direct current cardioversion for uncontrolled atrial flutter Moderate Conscious Sedation with Versed and Fentanyl Date of Procedure 03/15/25 Pre Op Diagnosis Uncontroled Atrial Fibrillation Indication Uncontrolled Atrial Fibrillation Post Op Diagnosis Normal Sinus Rhythm restored. Procedure Description Patient was in atrial fibrillation and ventricular rate was uncontrolled came in for elective cardioversion as patient was having significant symptoms for the Afib and also stroke. Decision was made to perform cardioversion for the patient after performing a transesophageal echocardiogram. Transesophageal echocardiogram was completed today and did not show any significant LA or BARRY thrombus.? Please see ANI report from today for rest of the findings.? Patient was already on anticoagulation with eliquis.. Patient was taken to the [facility] for the ANI and cardioversion, both anterior and posterior pads were placed.? Patient was given moderate sedation and received a total of 5 mg of Versed and 125 mcg of fentanyl prior to the procedure to provide him enough for sedation for both ANI and cardioversion. A biphasic defibrillator was used.? A single 120 J synchronized shock was given and the patient converted successfully into normal sinus rhythm.? No complications during or after the procedure.? Patient is doing well.? His heart rate was stable between 50 to 70 bpm and appears to be normal sinus rhythm on the telemetry.? Recommend to perform an EKG to document normal sinus rhythm postprocedure.? Patient will be monitored in the [facility] for the next 1-2 hours and will be discharged home tomorrow if hemodynamically stable. Will adjust her medications for atrial fibrillation. Estimated Blood Loss 0 Specimen(s) Specimen(s): None. Conclusion Successful direct current cardioversion of Atrial Fibrillation to Normal Sinus Rhythm Recommendation Change metoprolol XL 100 mg Q Day if BP stable. Continue Eliquis 5 mg BID for anticaogulation. EKG to document NSR post procedure. No driving for 24 hours. Patient recommended to follow up in 1 week in the clinic. Surgical Staff Surgeon: Stalin Alonzo MD
--- NOTE | 2025-03-15 16:39 | ESPR_ITS ---
Documentation for date of: 03/15/25 Subjective Subjective Interval history: Patient was seen and examined at bedside. She denied any new symptoms. She was noticed to have heart rate of 120 A-fib with RVR even though the patient on metoprolol 100 mg p.o. twice daily. However her blood pressure was stable. MRI came back positive for multiple stroke affecting frontal, parietal, occipital lobes of the right side. Patient was started on aspirin and Eliquis by the neurology team. 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 Objective Labs 03/15/25 04:48 03/15/25 04:48 Labs: Laboratory Results - last 24 hr 03/15/25 04:48 WBC 8.5 RBC 3.42 L Hgb 10.9 L Hct 33.9 L MCV 99 MCH 31.9 MCHC 32.2 RDW Std Deviation 49.0 H Plt Count 232 D Neut % (Auto) 55 Lymph % (Auto) 27 [place] % (Auto) 14 H Eos % (Auto) 4 Baso % (Auto) 1 Neut # (Auto) 4.7 Lymph # (Auto) 2.3 [place] # (Auto) 1.2 H Eos # (Auto) 0.4 Baso # (Auto) 0.0 Immature Gran # (Auto) 0.02 H Absolute Nucleated RBC 0.00 Immature Gran % 0 Nucleated RBC % 0 Sodium 143 Potassium 3.9 Chloride 103 Carbon Dioxide 31.2 H Anion Gap 9 BUN 10 Creatinine 1.0 Estim Creat Clear Calc 39.4 L eGFR 58 L BUN/Creatinine Ratio 10 L Glucose 106 Calculated Osmolality 283 Calcium 9.0 Corrected Calcium 9.1 Phosphorus 4.1 Magnesium 2.2 Total Bilirubin 0.5 AST 19 ALT 12 Alkaline Phosphatase 51 Total Protein 6.4 Albumin 3.9 Globulin 2.5 Albumin/Globulin Ratio 1.6 Quality Measures Quality Measures none Advance care planning discussed with:: patient Assessment & Plan Assessment Current Active Medications: Generic Name Dose Route Start Last Admin Trade Name Freq PRN Reason Stop Dose Admin Acetaminophen 650 mg 03/13/25 13:19 03/15/25 03:41 Acetaminophen 325 Mg Tablet PO 04/12/25 13:18 650 mg Q6H PRN Administration Fever >100.4 or Pain 1-3 Apixaban 5 mg 03/14/25 10:45 03/15/25 10:14 Apixaban 2.5 Mg Tablet PO 04/13/25 10:44 5 mg BID CATARINA Administration Aspirin 81 mg 03/13/25 18:45 03/15/25 10:14 Aspirin Ec 81 Mg Tabec PO 04/12/25 18:44 81 mg QDAY CATARINA Administration Atorvastatin Calcium 40 mg 03/13/25 21:00 03/14/25 20:34 Atorvastatin Calcium 20 Mg Tablet PO 04/12/25 20:59 40 mg HS CATARINA Administration Furosemide 20 mg 03/13/25 21:00 03/15/25 10:17 Furosemide Inj 10 Mg/Ml Vial 2 Ml IVP 04/12/25 20:59 20 mg QDAY CATARINA Administration Melatonin 6 mg 03/13/25 22:00 03/14/25 20:35 Melatonin 3 Mg Tablet PO 04/12/25 21:59 6 mg HS CATARINA Administration Metoprolol Succinate 100 mg 03/16/25 09:00 Metoprolol Succinate Xl 25 Mg Tabcr PO 04/15/25 08:59 QDAY CATARINA Ondansetron HCl 4 mg 03/13/25 13:19 Ondansetron Inj 2 Mg/Ml Inj 2 Ml IVP 04/12/25 13:18 Q6H PRN NAUSEA OR VOMITING Protocol Plan Summary: 79-year-old [id number] female patient with medical history of hypertension, chronic right hip pain on gabapentin came to the ED due to an episode of lower extremity weakness 3 days before presentation. Patient reported that for the past few days she has been feeling unwell with nonspecific symptoms. Patient was found to have A-fib with RVR, patient was also admitted for stroke workup. #A-fib with RVR #Pulmonary congestion #Acute right-sided multi embolic stroke #HFrEF with ejection fraction of 45%. Patient presented with left-sided weakness of the upper extremity, she also reported bilateral lower extremity weakness for more than 3 days. Patient was oriented x 2. Patient has never had an EKG in the past, and has never seen a primary care physician since her hip surgery which was many years ago Chest x-ray showed bilateral pulmonary congestion, positive B-lines CT scan of the brain showed hypodensity areas on the frontal, parietal, occipital lobe on the right side. We believe that the patient might have long history of undiagnosed A-fib which resulted in subtle stroke. Echo In 2019 showed normal ejection fraction of 60 to 65%, showed also mild mitral, aortic, tricuspid regurgitation. [id number] score of 4 points, has bled score is 4 point with risk of major bleed 8.9% 03/14/2025 patient underwent MRI which showed multiple embolic stroke with right frontal parietal lobe right occipital lobe. 90% stenosis proximal right internal carotid artery, possible 70% stenosis proximal right internal carotid artery 25 mm from its origin. Bilateral carotid duplex was also performed but it showed only mild plaque with less than 20% stenosis. I reviewed both the images and bilateral carotid duplex appeared to be normal and patient mostly has artifact on the MRI Discussed with the radiologist Dr. Platt and MRI images show mostly artifact as the velocities were also normal on the carotid duplex. 03/15/2025 ANI was done and was negative for vegetations or thrombi, negative for PFO, ejection fraction is 45%. Cardioversion was performed with 120 J x 1 and patient converted to normal sinus rhythm between 60 to 80 bpm. Patient tolerated well the procedure well. After cardioversion patient was noticed to have some PVCs, will monitor until tomorrow if continues to have frequent PACs or PVCs we might increase metoprolol to 150 mg p.o. XL Plan ? Decrease the dose of metoprolol 100 mg p.o. XL to once a day ? Patient was started on aspirin and Eliquis by the primary team as per the neurology recommended ? Can give the patient metoprolol IV push 5 mg x 1 F patient go back to A-fib with RVR and blood pressure SBP more than 110 mmHg. ? Continue patient lisinopril as part of the GDMT ? Echocardiogram was ordered, pending result. ? Continue the patient on Lasix 20 mg IV daily. ? Strict in and out ? Will consider starting the patient on anticoagulation after MRI rule out stroke and after neurology recommendations #History of hypertension Patient on lisinopril at home. #History of right hip fracture status post hip replacement surgery On gabapentin. Thank you for your consultation, please do not hesitate to reach out if you have any question or concerns. - Patient's plan and care discussed with my attending, Dr. Cheri Rendon MD Internal Medicine PGY-3 Attending Provider Attestation/Addendum I have personally seen and examined the patient separately on the above date of service and discussed the plan of care with the resident. I reviewed the resident Dr. Rendon consultation progress note and agree with the resident findings and plan in the note above and have also edited the documentation to reflect my findings and plan. Stalin Alonzo M.D. Interventional Cardiology
[2025-03-15] MEDS: MELATONIN 3 MG TABLET 6 MG PO (20:23)
[2025-03-15] MEDS: ATORVASTATIN CALCIUM 20 MG TABLET 40 MG PO (20:23)
[2025-03-16] VITALS (12 sets, daily range): BP systolic 131–153; BP diastolic 65–77; PULSE 58–69; RESP 12–26; TEMP 36.1–36.4; O2SAT 90–99; BMI 13.0; BMI 28.7
[2025-03-16 06:03] LABS: Hematocrit 33.3 % (36.0-46.0); Hemoglobin 10.8 g/dL (12.0-16.0); Lymphocytes % (Auto) 33 % (10-50); Mean Corpuscular HGB Conc 32.4 g/dl (31.0-37.0); Mean Corpuscular Hemoglobin 32.0 pg (25.0-35.0); Mean Corpuscular Volume 99 fL (80-100); Neutrophils % (Auto) 49 % (37-80); Platelet Count 239 Thou/mm3 (140-440); RDW Standard Deviation 48.9 fL (36.4-46.3); Red Blood Count 3.37 Miln/mm3 (4.00-5.20); White Blood Count 9.5 Thou/mm3 (3.6-11.0)
[2025-03-16 06:04] LABS: Basophils # (Auto) 0.1 Thou/mm3 (0.0-0.2); Basophils % (Auto) 1 % (0-2.5); Eosinophils # (Auto) 0.5 Thou/mm3 (0.0-0.5); Eosinophils % (Auto) 5 % (0-10); Immature Granulocytes Auto 0.03 Thou/mm3 (0.00-0.00); Lymphocytes # (Auto) 3.1 Thou/mm3 (1.0-4.8); Monocytes # (Auto) 1.1 Thou/mm3 (0.0-0.8); Monocytes % (Auto) 12 % (0-12); Neutrophils # (Auto) 4.7 Thou/mm3 (1.8-7.7); Nucleated Red Blood Cell # 0.00 Thou/mm3 (0.00-0.00); Nucleated Red Blood Cell % 0 /100 WBC (0)
[2025-03-16 06:29] LABS: Alanine Aminotransferase 14 U/L (10-49); Albumin, Serum 3.9 gm/dL (3.4-4.8); Albumin/Globulin Ratio 1.5 (1.2-2.2); Alkaline Phosphatase 51 U/L (46-116); Anion Gap 11 (7-16); Aspartate Amino Transferase 22 U/L (0-34); BUN/Creatinine Ratio 14 Ratio (12-20); Bilirubin,Total 0.5 mg/dL (0.3-1.2); Blood Urea Nitrogen 14 mg/dL (9-23); Calcium 8.8 mg/dL (8.3-10.6); Calcium (Corrected) 8.9 mg/dL (8.5-10.1); Carbon Dioxide 30.0 mMol/L (20.0-31.0); Chloride 100 mMol/L (98-107); Creatinine (Component) 1.0 mg/dL (0.6-1.3); Estimated Creatinine Clearance 39.4 mL/min (>60); Globulin 2.6 gm/dL (2.3-3.5); Glucose 95 mg/dL (74-106); Magnesium 2.1 mg/dL (1.6-2.6); Osmolality,Calculated 281 (275-295); Phosphorous 4.5 mg/dL (2.4-5.1); Potassium 3.7 mMol/L (3.4-5.1); Sodium 141 mMol/L (136-145); Total Protein 6.5 gm/dL (5.7-8.2); eGFR 58 See Note
[2025-03-16] MEDS: FUROSEMIDE INJ 10 MG/ML VIAL 2 ML 20 MG IVP (08:12)
[2025-03-16] MEDS: APIXABAN 2.5 MG TABLET 5 MG PO ×2 (08:13→20:12)
[2025-03-16] MEDS: METOPROLOL SUCCINATE XL 25 MG TABCR 100 MG PO (08:13)
[2025-03-16] MEDS: ASPIRIN EC 81 MG TABEC PO (08:14)
--- NOTE | 2025-03-16 09:36 | PC.SS ---
Addendum entered by Amelia Crabtree 03/16/25 14:52: [phone]- SS was transferred to Customer Assistance, Khadijah who provided SS with F#[phone] send clinicals for auth. Khadijah stated to put on cover sheet Rehab requested and DC date. SS sent fax via [employer]. Per Khadijah a heel caser will be contacting us directly Addendum entered by Amelia Crabtree 03/16/25 13:37: 1100: SS called [facility] at [phone], SS was transferred to Ingrid in auth department who gave to fax clinicals, SS inquired on a contact center specialist to follow up with fax, per Ingrid SS to call main line and speak to novelty printing machine operator who will have access to view if fax was received 1330: SS faxed over all documentation to initiate auth for [facility] Addendum entered by Amelia Crabtree 03/16/25 10:43: SS spoke to Jennifer at [facility] who is requesting for auth to be initiated with Yoan. SS to reach out and initiate auth Original Note: SS submitted imaging clinicals via [facility] to [facility] as requested
--- NOTE | 2025-03-16 11:57 | ESPR_ITS ---
<Statement entered by Tracy Potts MD - 03/22/25 17:37> I reviewed above note and agree with findings and plans. I have also personally examined the patient with medicine team and went over assessment and plan with medical team including technology risk intern and resident physician. <Statement entered by Tamiko Wu MD - 03/17/25 07:37> I discussed with and supervised the technology risk intern physician who took care of this patient. I personally saw and examined the patient and discussed the assessment and plan with the entire medicine team, including my attending Dr. Potts, I agree with most of the assessment and plan as documented below Tamiko Wu M.D. PGY-3 Documentation for date of: 03/16/25 Subjective Subjective Interval history: Patient examined at bedside. NAOE. She underwent ANI and cardioversion yesterday with successful return to NSR. It was noted on ANI that she had reduced ejection fraction of 45%. She was started on daily lasix 20 mg IV and metoprolol dose was dropped to 100 mg daily. After discussion with radiology and cardiology regarding carotid stenosis discrepencie between US and MRA, it was determined that the MRA was likely artifactual based on the uneffected velocities on carotid US. Lisinopril was restarted as a part of GDMT for her newly diagnosed HFrEF. Exam Vital Signs Temp Pulse Resp BP Pulse Ox O2 Del Method O2 Flow Rate 97.0 F 64 26 H 146/65 H 94 L Room Air 2 03/16/25 08:00 03/16/25 11:08 03/16/25 11:08 03/16/25 09:40 03/16/25 11:08 03/16/25 08:00 03/16/25 04:00 Narrative Exam General: Elderly patient, no acute distress, conversational. HEENT: Mucosa moist. Pupils are equal Cardiovascular: Regular rate and rhythm. No murmur or rub appreciated. Respiratory: No tachypnea or labored speech. CTA bilaterally without wheezes or crackles. Abdomen: Soft, not distended, non tender to palpation. Skin: Dry, no rashes or bruising Musculoskeletal: No gross injuries. Able to move all 4 extremities. Non edematous lower extremities. Neuro: Alert and oriented x3. Very subtle weakness of the left arm in bearing maker strength. More prominent weakness with arm extension, 4/5. Psych: Normal affect and mood Objective Labs 03/16/25 04:53 03/16/25 04:53 Labs: Laboratory Results - last 24 hr 03/16/25 04:53 WBC 9.5 RBC 3.37 L Hgb 10.8 L Hct 33.3 L MCV 99 MCH 32.0 MCHC 32.4 RDW Std Deviation 48.9 H Plt Count 239 Neut % (Auto) 49 Lymph % (Auto) 33 [place] % (Auto) 12 Eos % (Auto) 5 Baso % (Auto) 1 Neut # (Auto) 4.7 Lymph # (Auto) 3.1 [place] # (Auto) 1.1 H Eos # (Auto) 0.5 Baso # (Auto) 0.1 Immature Gran # (Auto) 0.03 H Absolute Nucleated RBC 0.00 Immature Gran % 0 Nucleated RBC % 0 Sodium 141 Potassium 3.7 Chloride 100 Carbon Dioxide 30.0 Anion Gap 11 BUN 14 Creatinine 1.0 Estim Creat Clear Calc 39.4 L eGFR 58 L BUN/Creatinine Ratio 14 Glucose 95 Calculated Osmolality 281 Calcium 8.8 Corrected Calcium 8.9 Phosphorus 4.5 Magnesium 2.1 Total Bilirubin 0.5 AST 22 ALT 14 Alkaline Phosphatase 51 Total Protein 6.5 Albumin 3.9 Globulin 2.6 Albumin/Globulin Ratio 1.5 Quality Measures Quality Measures none Advance care planning discussed with:: patient Assessment & Plan Assessment Current Active Medications: Generic Name Dose Route Start Last Admin Trade Name Freq PRN Reason Stop Dose Admin Acetaminophen 650 mg 03/13/25 13:19 03/15/25 03:41 Acetaminophen 325 Mg Tablet PO 04/12/25 13:18 650 mg Q6H PRN Administration Fever >100.4 or Pain 1-3 Apixaban 5 mg 03/14/25 10:45 03/16/25 08:13 Apixaban 2.5 Mg Tablet PO 04/13/25 10:44 5 mg BID CATARINA Administration Aspirin 81 mg 03/13/25 18:45 03/16/25 08:14 Aspirin Ec 81 Mg Tabec PO 04/12/25 18:44 81 mg QDAY CATARINA Administration Atorvastatin Calcium 40 mg 03/13/25 21:00 03/15/25 20:23 Atorvastatin Calcium 20 Mg Tablet PO 04/12/25 20:59 40 mg HS CATARINA Administration Furosemide 20 mg 03/13/25 21:00 03/16/25 08:12 Furosemide Inj 10 Mg/Ml Vial 2 Ml IVP 04/12/25 20:59 20 mg QDAY CATARINA Administration Lisinopril 10 mg 03/16/25 09:00 03/16/25 09:40 Lisinopril 2.5 Mg Tablet PO 04/15/25 08:59 10 mg QDAY CATARINA Administration Melatonin 6 mg 03/13/25 22:00 03/15/25 20:23 Melatonin 3 Mg Tablet PO 04/12/25 21:59 6 mg HS CATARINA Administration Metoprolol Succinate 100 mg 03/16/25 09:00 03/16/25 08:13 Metoprolol Succinate Xl 25 Mg Tabcr PO 04/15/25 08:59 100 mg QDAY CATARINA Administration Ondansetron HCl 4 mg 03/13/25 13:19 Ondansetron Inj 2 Mg/Ml Inj 2 Ml IVP 04/12/25 13:18 Q6H PRN NAUSEA OR VOMITING Protocol Plan 79 yof with a h/o htn presents to the ED with generalized weakness and left arm tingling who was found to be in a-fib with RVR and admitted for a-fib management. #HFrEF EF 45% #Mitral Regurgitation #HTN This was noted on ANI prior to cardioversion. Moderate to severe MR noted with reversal of pulmonary flow into by 3 pulmonary veins. It is unclear if the patient if this was the inciting factor of the a-fib (see below) or resultant from it. She would benefit from GDMT and will work toward optimization of her regimen. -Restart lisinopril 10 mg -Furosemide 20mg IV -Plan on close follow up with cardiology after discharge. #Acute embolic stroke #A-fib with RVR #Left Upper extremity weakness Newly diagnosed. Unclear how long in duration or etiology. Stable with BP of 143/103, though causing the patient mild dyspnea. Rates in the 200s on presentation, now in the 150s with diltiazem drip at 15. This patient is relatively undoctored, so minimal recorded medical history. Differential remains broad, CHF is considered given perihilar congestion, though patient denies leg swelling or orthopnea.. [id number] score is 4 which gives her a 6.7% risk of stroke/TIA/systemic embolism. HAS-BLED score is 4, risk of major bleed 8.9% CT and MRI confirmed multiple acute embolic type infarcts. Also noted on MRA was greater than 90% stenosis of the RCA. However, carotid US demonstrated <10% stenosis of the RCA with unaffected velocities . Patient's a-fib has likely been long standing and possibly paroxysmal. She is a poor historian so it is unclear how long she has been symptomatic. A-fib appears to be well controlled with diltiazem 15 mg/hr. She was transitioned to Metoprolol 100 BID per cardiology recommendations. She was taken for ANI and cardioversion on 03/15 with cardiology, was converted to normal sinus rhythm. Metoprolol titrated down from twice daily to once daily dosing. After discussion with radiology and cardiology regarding carotid stenosis discrepencie between US and MRA, it was determined that the MRA was likely artifactual based on the uneffected velocities on carotid US. -Begin Metoprolol succinate 100 mg daily. -Apixaban and aspirin 81mg per neurology recommendations. -Atorvastatin 40mg daily -TSH WNL, 2.97 -Lipid Panel, Cholesterol 123, LDL 54. -A1c 5.4 -Cardiac consultation, Neurology consultation, appreciate recommendations. Health Maintenance: DVT prophylaxis: anticoagulated with apixaban Diet: Cardiac diet. [place]: No Lines: PIV CODE STATUS: Full code Disposition: Optimization of GDMT, likely DC tomorrow Patient's plan and care discussed with my attending, Tracy Potts MD. Mk Rosado DO PGY-1 ([facility] Resident)
--- NOTE | 2025-03-16 18:32 | PD.RESPRO ---
Documentation for date of: 03/16/25 Subjective Subjective Interval history: Patient was seen and examined at bedside. Denied any new symptoms, no overnight arrhythmias, PVCs, or PACs detected.. Patient worked with the physical therapist with no complications, patient will need cardiac follow-up in outpatient settings upon discharge. Exam Vital Signs Temp Pulse Resp BP Pulse Ox O2 Del Method O2 Flow Rate 97.1 F 60 17 137/71 H 93 L Room Air 2 03/16/25 16:00 03/16/25 16:00 03/16/25 16:00 03/16/25 16:00 03/16/25 16:00 03/16/25 16:00 03/16/25 04:00 Narrative Exam GEN: AOx2, able to speak full sentences HEENT: NC/AC, oral mucosa moist, neck supple CVS: RRR, S1-S2 present, no murmurs appreciated RESP: CTAB GI: soft,non distended, non tender, NBS MSK: able to move all 4 limbs however mild weakness in the upper extremity, able to ambulate with credit control assistant, no lower extremity edema SKIN: warm and dry HARDWARE ASSEMBLER: CN II-XII and Sensation grossly intact. Objective Labs 03/16/25 04:53 03/16/25 04:53 Labs: Laboratory Results - last 24 hr 03/16/25 04:53 WBC 9.5 RBC 3.37 L Hgb 10.8 L Hct 33.3 L MCV 99 MCH 32.0 MCHC 32.4 RDW Std Deviation 48.9 H Plt Count 239 Neut % (Auto) 49 Lymph % (Auto) 33 [place] % (Auto) 12 Eos % (Auto) 5 Baso % (Auto) 1 Neut # (Auto) 4.7 Lymph # (Auto) 3.1 [place] # (Auto) 1.1 H Eos # (Auto) 0.5 Baso # (Auto) 0.1 Immature Gran # (Auto) 0.03 H Absolute Nucleated RBC 0.00 Immature Gran % 0 Nucleated RBC % 0 Sodium 141 Potassium 3.7 Chloride 100 Carbon Dioxide 30.0 Anion Gap 11 BUN 14 Creatinine 1.0 Estim Creat Clear Calc 39.4 L eGFR 58 L BUN/Creatinine Ratio 14 Glucose 95 Calculated Osmolality 281 Calcium 8.8 Corrected Calcium 8.9 Phosphorus 4.5 Magnesium 2.1 Total Bilirubin 0.5 AST 22 ALT 14 Alkaline Phosphatase 51 Total Protein 6.5 Albumin 3.9 Globulin 2.6 Albumin/Globulin Ratio 1.5 Quality Measures Quality Measures none Advance care planning discussed with:: patient Assessment & Plan Assessment Current Active Medications: Generic Name Dose Route Start Last Admin Trade Name Freq PRN Reason Stop Dose Admin Acetaminophen 650 mg 03/13/25 13:19 03/15/25 03:41 Acetaminophen 325 Mg Tablet PO 04/12/25 13:18 650 mg Q6H PRN Administration Fever >100.4 or Pain 1-3 Apixaban 5 mg 03/14/25 10:45 03/16/25 08:13 Apixaban 2.5 Mg Tablet PO 04/13/25 10:44 5 mg BID CATARINA Administration Aspirin 81 mg 03/13/25 18:45 03/16/25 08:14 Aspirin Ec 81 Mg Tabec PO 04/12/25 18:44 81 mg QDAY CATARINA Administration Atorvastatin Calcium 40 mg 03/13/25 21:00 03/15/25 20:23 Atorvastatin Calcium 20 Mg Tablet PO 04/12/25 20:59 40 mg HS CATARINA Administration Furosemide 20 mg 03/13/25 21:00 03/16/25 08:12 Furosemide Inj 10 Mg/Ml Vial 2 Ml IVP 04/12/25 20:59 20 mg QDAY CATARINA Administration Lisinopril 10 mg 03/16/25 09:00 03/16/25 09:40 Lisinopril 2.5 Mg Tablet PO 04/15/25 08:59 10 mg QDAY CATARINA Administration Melatonin 6 mg 03/13/25 22:00 03/15/25 20:23 Melatonin 3 Mg Tablet PO 04/12/25 21:59 6 mg HS CATARINA Administration Metoprolol Succinate 100 mg 03/16/25 09:00 03/16/25 08:13 Metoprolol Succinate Xl 25 Mg Tabcr PO 04/15/25 08:59 100 mg QDAY CATARINA Administration Ondansetron HCl 4 mg 03/13/25 13:19 Ondansetron Inj 2 Mg/Ml Inj 2 Ml IVP 04/12/25 13:18 Q6H PRN NAUSEA OR VOMITING Protocol Plan Summary: 79-year-old [id number] female patient with medical history of hypertension, chronic right hip pain on gabapentin came to the ED due to an episode of lower extremity weakness 3 days before presentation. Patient reported that for the past few days she has been feeling unwell with nonspecific symptoms. Patient was found to have A-fib with RVR, patient was also admitted for stroke workup. #A-fib with RVR #Pulmonary congestion #Acute right-sided multi embolic stroke #HFrEF with ejection fraction of 45%. Patient presented with left-sided weakness of the upper extremity, she also reported bilateral lower extremity weakness for more than 3 days. Patient was oriented x 2. Patient has never had an EKG in the past, and has never seen a primary care physician since her hip surgery which was many years ago Chest x-ray showed bilateral pulmonary congestion, positive B-lines CT scan of the brain showed hypodensity areas on the frontal, parietal, occipital lobe on the right side. We believe that the patient might have long history of undiagnosed A-fib which resulted in subtle stroke. Echo In 2019 showed normal ejection fraction of 60 to 65%, showed also mild mitral, aortic, tricuspid regurgitation. [id number] score of 4 points, has bled score is 4 point with risk of major bleed 8.9% 03/14/2025 patient underwent MRI which showed multiple embolic stroke with right frontal parietal lobe right occipital lobe. 90% stenosis proximal right internal carotid artery, possible 70% stenosis proximal right internal carotid artery 25 mm from its origin. Bilateral carotid duplex was also performed but it showed only mild plaque with less than 20% stenosis. I reviewed both the images and bilateral carotid duplex appeared to be normal and patient mostly has artifact on the MRI Discussed with the radiologist Dr. Platt and MRI images show mostly artifact as the velocities were also normal on the carotid duplex. 03/15/2025 ANI was done and was negative for vegetations or thrombi, negative for PFO, ejection fraction is 45%. Cardioversion was performed with 120 J x 1 and patient converted to normal sinus rhythm between 60 to 80 bpm. 03/16/2025 patient tolerated well the procedure well. After cardioversion patient patient will continue to be in sinus rhythm. Plan ? Continue metoprolol 100 mg p.o. XL to once a day ? Continue on aspirin and Eliquis by the primary team as per the neurology recommended ? Can give the patient metoprolol IV push 5 mg x 1 F patient go back to A-fib with RVR and blood pressure SBP more than 110 mmHg. ? Follow-up with the elementary esl teacher Dr. Alonzo in outpatient settings within 1 to 2 weeks from discharge ? Continue patient lisinopril as part of the GDMT ? Continue the patient on Lasix 20 mg IV daily. ? Strict in and out #History of hypertension Patient on lisinopril at home. #History of right hip fracture status post hip replacement surgery On gabapentin. Thank you for your consultation, please do not hesitate to reach out if you have any question or concerns. - Patient's plan and care discussed with my attending, Dr. Cheri Rendon MD Internal Medicine PGY-3 Attending Provider Attestation/Addendum I have personally seen and examined the patient separately on the above date of service and discussed the plan of care with the resident. I reviewed the resident consultation progress note and agree with the resident findings and plan in the note above and have also edited the documentation to reflect my findings and plan. Stalin Alonzo M.D. Interventional Cardiology
[2025-03-16] MEDS: MELATONIN 3 MG TABLET 6 MG PO (20:12)
[2025-03-16] MEDS: ATORVASTATIN CALCIUM 20 MG TABLET 40 MG PO (20:12)
--- NOTE | 2025-03-16 23:05 | PD.NEUROPROG ---
Documentation for date of: 03/16/25 Exam - Neurology Vital Signs Temp Pulse Resp BP Pulse Ox O2 Del Method O2 Flow Rate 97.6 F 66 21 H 153/70 H 95 Room Air 2 03/16/25 20:00 03/16/25 22:56 03/16/25 22:56 03/16/25 20:00 03/16/25 22:56 03/16/25 20:00 03/16/25 04:00 Objective Labs 03/16/25 04:53 03/16/25 04:53 Labs: Laboratory Results - last 24 hr 03/16/25 04:53 WBC 9.5 RBC 3.37 L Hgb 10.8 L Hct 33.3 L MCV 99 MCH 32.0 MCHC 32.4 RDW Std Deviation 48.9 H Plt Count 239 Neut % (Auto) 49 Lymph % (Auto) 33 [place] % (Auto) 12 Eos % (Auto) 5 Baso % (Auto) 1 Neut # (Auto) 4.7 Lymph # (Auto) 3.1 [place] # (Auto) 1.1 H Eos # (Auto) 0.5 Baso # (Auto) 0.1 Immature Gran # (Auto) 0.03 H Absolute Nucleated RBC 0.00 Immature Gran % 0 Nucleated RBC % 0 Sodium 141 Potassium 3.7 Chloride 100 Carbon Dioxide 30.0 Anion Gap 11 BUN 14 Creatinine 1.0 Estim Creat Clear Calc 39.4 L eGFR 58 L BUN/Creatinine Ratio 14 Glucose 95 Calculated Osmolality 281 Calcium 8.8 Corrected Calcium 8.9 Phosphorus 4.5 Magnesium 2.1 Total Bilirubin 0.5 AST 22 ALT 14 Alkaline Phosphatase 51 Total Protein 6.5 Albumin 3.9 Globulin 2.6 Albumin/Globulin Ratio 1.5
[2025-03-17] VITALS (7 sets, daily range): BP systolic 126–150; BP diastolic 58–78; PULSE 58–68; RESP 18–25; TEMP 36.3–36.8; O2SAT 94–98; BMI 26.5
[2025-03-17 05:23] LABS: Basophils # (Auto) 0.1 Thou/mm3 (0.0-0.2); Basophils % (Auto) 1 % (0-2.5); Eosinophils # (Auto) 0.5 Thou/mm3 (0.0-0.5); Eosinophils % (Auto) 5 % (0-10); Hematocrit 35.5 % (36.0-46.0); Hemoglobin 11.5 g/dL (12.0-16.0); Immature Granulocytes Auto 0.02 Thou/mm3 (0.00-0.00); Lymphocytes # (Auto) 3.1 Thou/mm3 (1.0-4.8); Lymphocytes % (Auto) 32 % (10-50); Mean Corpuscular HGB Conc 32.4 g/dl (31.0-37.0); Mean Corpuscular Hemoglobin 31.9 pg (25.0-35.0); Mean Corpuscular Volume 98 fL (80-100); Monocytes # (Auto) 1.3 Thou/mm3 (0.0-0.8); Monocytes % (Auto) 13 % (0-12); Neutrophils # (Auto) 4.7 Thou/mm3 (1.8-7.7); Neutrophils % (Auto) 49 % (37-80); Nucleated Red Blood Cell # 0.00 Thou/mm3 (0.00-0.00); Nucleated Red Blood Cell % 0 /100 WBC (0); Platelet Count 251 Thou/mm3 (140-440); RDW Standard Deviation 48.0 fL (36.4-46.3); Red Blood Count 3.61 Miln/mm3 (4.00-5.20); White Blood Count 9.6 Thou/mm3 (3.6-11.0)
[2025-03-17 05:54] LABS: Alanine Aminotransferase 21 U/L (10-49); Albumin, Serum 4.0 gm/dL (3.4-4.8); Albumin/Globulin Ratio 1.5 (1.2-2.2); Alkaline Phosphatase 53 U/L (46-116); Anion Gap 9 (7-16); Aspartate Amino Transferase 40 U/L (0-34); BUN/Creatinine Ratio 18 Ratio (12-20); Bilirubin,Total 0.5 mg/dL (0.3-1.2); Blood Urea Nitrogen 18 mg/dL (9-23); Calcium 9.2 mg/dL (8.3-10.6); Calcium (Corrected) 9.2 mg/dL (8.5-10.1); Carbon Dioxide 30.3 mMol/L (20.0-31.0); Chloride 101 mMol/L (98-107); Creatinine (Component) 1.0 mg/dL (0.6-1.3); Estimated Creatinine Clearance 36.9 mL/min (>60); Globulin 2.6 gm/dL (2.3-3.5); Glucose 96 mg/dL (74-106); Osmolality,Calculated 281 (275-295); Potassium 4.2 mMol/L (3.4-5.1); Sodium 140 mMol/L (136-145); Total Protein 6.6 gm/dL (5.7-8.2); eGFR 58 See Note
[2025-03-17 08:00] LABS: Magnesium 2.0 mg/dL (1.6-2.6)
[2025-03-17] MEDS: METOPROLOL SUCCINATE XL 25 MG TABCR 100 MG PO (08:05)
[2025-03-17] MEDS: ASPIRIN EC 81 MG TABEC PO (08:05)
[2025-03-17] MEDS: FUROSEMIDE INJ 10 MG/ML VIAL 2 ML 20 MG IVP (08:05)
[2025-03-17] MEDS: APIXABAN 2.5 MG TABLET 5 MG PO (08:05)
--- NOTE | 2025-03-17 09:10 | ESPR_ITS ---
Documentation for date of: 03/17/25 Subjective Subjective Interval history: Patient seen and examined at bedside. Telemetry reviewed, showing sinus rhythm rate in 60s to 70s. Blood pressure 130s to 150s over 60s. Patient feels well today, is ready to go home. Denies chest pain, chest pressure, palpitations, shortness of breath or leg swelling. Patient endorses memory loss of recent events. No other complaints. Hemoglobin increased from 10.8-11.5. Potassium 4.2 creatinine 1.0 magnesium 2.0. Exam Vital Signs Temp Pulse Resp BP Pulse Ox O2 Del Method O2 Flow Rate 98.0 F 68 18 149/78 H 96 Room Air 2 03/17/25 04:00 03/17/25 08:05 03/17/25 06:12 03/17/25 08:05 03/17/25 06:12 03/17/25 04:00 03/16/25 04:00 Narrative Exam GENERAL: AOx2, no acute distress HEENT: NC/AT, mucous membranes moist, bilateral sclera anicteric CARDIOVASCULAR: regular rate and rhythm, S1/S2 present, no murmurs appreciated PULMONARY: clear to auscultation bilaterally, no rales/rhonchi/wheezes ABDOMINAL: soft, non-tender, non-distended, no rebound/guarding, bowel sounds present EXTREMITIES: no peripheral edema, mild weakness L senior communications specialist strength SKIN: warm and dry, intact, no rashes NEURO: CN II-XII grossly intact, no focal deficits, alert, following commands Objective Labs 03/17/25 04:55 03/17/25 04:55 Labs: Laboratory Results - last 24 hr 03/17/25 04:55 WBC 9.6 RBC 3.61 L Hgb 11.5 L Hct 35.5 L MCV 98 MCH 31.9 MCHC 32.4 RDW Std Deviation 48.0 H Plt Count 251 Neut % (Auto) 49 Lymph % (Auto) 32 [place] % (Auto) 13 H Eos % (Auto) 5 Baso % (Auto) 1 Neut # (Auto) 4.7 Lymph # (Auto) 3.1 [place] # (Auto) 1.3 H Eos # (Auto) 0.5 Baso # (Auto) 0.1 Immature Gran # (Auto) 0.02 H Absolute Nucleated RBC 0.00 Immature Gran % 0 Nucleated RBC % 0 Sodium 140 Potassium 4.2 D Chloride 101 Carbon Dioxide 30.3 Anion Gap 9 BUN 18 Creatinine 1.0 Estim Creat Clear Calc 36.9 L eGFR 58 L BUN/Creatinine Ratio 18 Glucose 96 Calculated Osmolality 281 Calcium 9.2 Corrected Calcium 9.2 Magnesium 2.0 Total Bilirubin 0.5 AST 40 H ALT 21 Alkaline Phosphatase 53 Total Protein 6.6 Albumin 4.0 Globulin 2.6 Albumin/Globulin Ratio 1.5 Quality Measures Quality Measures none Advance care planning discussed with:: patient Assessment & Plan Assessment Current Active Medications: Generic Name Dose Route Start Last Admin Trade Name Freq PRN Reason Stop Dose Admin Acetaminophen 650 mg 03/13/25 13:19 03/15/25 03:41 Acetaminophen 325 Mg Tablet PO 04/12/25 13:18 650 mg Q6H PRN Administration Fever >100.4 or Pain 1-3 Apixaban 5 mg 03/14/25 10:45 03/17/25 08:05 Apixaban 2.5 Mg Tablet PO 04/13/25 10:44 5 mg BID CATARINA Administration Aspirin 81 mg 03/13/25 18:45 03/17/25 08:05 Aspirin Ec 81 Mg Tabec PO 04/12/25 18:44 81 mg QDAY CATRAINA Administration Atorvastatin Calcium 40 mg 03/13/25 21:00 03/16/25 20:12 Atorvastatin Calcium 20 Mg Tablet PO 04/12/25 20:59 40 mg HS CATARINA Administration Furosemide 20 mg 03/13/25 21:00 03/17/25 08:05 Furosemide Inj 10 Mg/Ml Vial 2 Ml IVP 04/12/25 20:59 20 mg QDAY CATARINA Administration Lisinopril 10 mg 03/16/25 09:00 03/17/25 08:04 Lisinopril 2.5 Mg Tablet PO 04/15/25 08:59 10 mg QDAY CATARINA Administration Melatonin 6 mg 03/13/25 22:00 03/16/25 20:12 Melatonin 3 Mg Tablet PO 04/12/25 21:59 6 mg HS CATARINA Administration Metoprolol Succinate 100 mg 03/16/25 09:00 03/17/25 08:05 Metoprolol Succinate Xl 25 Mg Tabcr PO 04/15/25 08:59 100 mg QDAY CATARINA Administration Ondansetron HCl 4 mg 03/13/25 13:19 Ondansetron Inj 2 Mg/Ml Inj 2 Ml IVP 04/12/25 13:18 Q6H PRN NAUSEA OR VOMITING Protocol Plan Summary: 79-year-old [id number] female patient with medical history of hypertension, chronic right hip pain on gabapentin came to the ED due to an episode of lower extremity weakness 3 days before presentation. Patient reported that for the past few days she has been feeling unwell with nonspecific symptoms. Patient was found to have A-fib with RVR, patient was also admitted for stroke workup. #A-fib with RVR s/p successful cardioversion 03/15/25 #Pulmonary congestion #Acute right-sided multi embolic stroke #HFrEF (45% 02/2025) Patient presented with left-sided weakness of the upper extremity, she also reported bilateral lower extremity weakness for more than 3 days. Patient was oriented x 2. Patient has never had an EKG in the past, and has never seen a primary care physician since her hip surgery which was many years ago Chest x-ray showed bilateral pulmonary congestion, positive B-lines CT scan of the brain showed hypodensity areas on the frontal, parietal, occipital lobe on the right side. We believe that the patient might have long history of undiagnosed A-fib which resulted in subtle stroke. Echo In 2019 showed normal ejection fraction of 60 to 65%, showed also mild mitral, aortic, tricuspid regurgitation. [id number] score of 4 points, has bled score is 4 point with risk of major bleed 8.9% 03/14/2025 patient underwent MRI which showed multiple embolic stroke with right frontal parietal lobe right occipital lobe. 90% stenosis proximal right internal carotid artery, possible 70% stenosis proximal right internal carotid artery 25 mm from its origin. Bilateral carotid duplex was also performed but it showed only mild plaque with less than 20% stenosis. I reviewed both the images and bilateral carotid duplex appeared to be normal and patient mostly has artifact on the MRI Discussed with the radiologist Dr. Platt and MRI images show mostly artifact as the velocities were also normal on the carotid duplex. 03/15/2025 ANI was done and was negative for vegetations or thrombi, negative for PFO, ejection fraction is 45%. Cardioversion was performed with 120 J x 1 and patient converted to normal sinus rhythm between 60 to 80 bpm. After cardioversion patient continues to be in sinus rhythm rate 60s. Plan ? Continue metoprolol 100 mg p.o. XL QD ? Continue on aspirin and Eliquis by the primary team as per the neurology recommended ? Can give the patient metoprolol IV push 5 mg x 1 F patient go back to [facility] with RVR and blood pressure SBP more than 110 mmHg. ? Follow-up with the pack master Dr. Alonzo in outpatient settings within 1 to 2 weeks from discharge ? Continue patient lisinopril 10 mg QD as part of the GDMT ? Continue the patient on Lasix 20 mg IV daily ? Strict in and out #History of hypertension Patient on lisinopril at home. BP stable inpatient on home lisinopril 10 mg QD. - BP usually ranges SBP 130-150, recommend to uptitrate antihypertensives outpatient #History of right hip fracture status post hip replacement surgery On gabapentin. Thank you for your consultation, please do not hesitate to reach out if you have any question or concerns. - Patient's plan and care discussed with my attending, Dr. Cheri Felipe, DO Internal Medicine PGY-1 Attending Provider Attestation/Addendum I have personally seen and examined the patient separately on the above date of service and discussed the plan of care with the resident. I reviewed the resident Dr. Ines Felipe consultation progress note and agree with the resident findings and plan in the note above and have also edited the documentation to reflect my findings and plan. Stalin Alonzo M.D. Interventional Cardiology
--- NOTE | 2025-03-17 09:15 | PC.SS ---
PRESTRESSED CONCRETE LABORER confirmed with patient and patient's daughter that plan is for patient to discharge home with home health (OT, PT, Speech, Nursing) not Acute Rehab. No preferred home health agency identified. PRESTRESSED CONCRETE LABORER updated resident team on discharge plan and need to place home health orders.
--- NOTE | 2025-03-17 10:33 | PC.CC ---
HH ref sent out, [facility] accepted and booked, soc 03/19
--- NOTE | 2025-03-17 14:04 | ESDS_ITS ---
<Statement entered by Tracy Potts MD - 03/22/25 17:39> I reviewed above note and agree with findings and plans. I have also personally examined the patient with medicine team and went over assessment and plan with medical team including international bank manager and resident physician. Planned Discharge Date 03/17/25 DS: Providers Provider Date of admission: 03/13/25 13:19 Primary care physician: Lety Warner MD Admitting Provider: Tracy Potts MD Attending Provider on Admission: Tracy Potts MD Consults: 03/13/25 13:24 Consult to Cardiology Routine Comment: new onset A-fib RVR Consulting Provider: Stalin Alonzo 03/13/25 19:50 Consult to Neurology / Tele-Neurology Routine Comment: left hand weakness, CT findings of old stroke? Consulting Provider: Jered uW 03/14/25 10:51 PT [Referral Physical Therapy] Routine Comment: Physician Instructions: 03/15/25 08:26 Referral Speech Therapy Routine Comment: for complete stroke work up Attending Provider on DC: Tracy Potts MD Discharging Provider: Tracy Potts MD DS: Diagnosis Problem List Completed Was Problem List Reviewed/Reconciled?: Yes Hospital Course Hospital Course Hospital course: Reason for hospitalization: Atrial fibrillation with RVR Patient is 79-year-old female withPMH of hypertension, hip replacement, chronic pain on gabapentin who presented to [facility] on 03/13/25 with generalized weakness and left arm heaviness for 2 weeks. Workup in ED showed her to be in atrial fibrillation with RVR rate of 120-130s. Potassium was 3.9, magnesium 2.0, troponin was negative x 2, BNP is 504. Chest x-ray was normal. Brain CT scan was done and showed large areas of low densities in the right frontal parietal and right occipital lobe old versus new. Rate did not improve with diltiazem push. Carrdiology was consulted. Ditiazem drip was started and then converted to PO metoprolol 100mg BID the next day. Patient underwent MRI which showed multiple embolic stroke with right frontal parietal lobe right occipital lobe 90% stenosis proximal right internal carotid artery, possible 70% stenosis proximal right internal carotid artery 25 mm from its origin. Neurology was consulted. Patient was started on atorvastatin, aspirin, and Eliquis 5mg BId. ANI was completed on 03/15 which was negative for any vegetations or thrombi, negative for PFO, ejection fraction is 45%. Cardoiversion was done on 03/15 and was tolerated well. Post cardioversion, rate and rhythm was controlled. She is to continue therapy with metoprolol, lisinopril, lasix for heart failure. BP was not permissible for entresto. Patient should follow up with cardiology to resume remaining agents for full goal directed medical thearpy as treatment for HFrEF. Patient is now in stable condition and ready for discharge. Discharge Recommendations: Continue taking aspirin 81mg daily, Eliquis 5mg twice a day, Lasix 40mg daily, Lisinopril 10mg, atorvastatin 40mg daily, and metoprolol 100mg once a day as management for your heart failure, atrial fibrillation and stroke prevention. Follow up with neurology, cardiology, and primary doctor in 1-2 weeks. Please continue home medications as prescribed. Please return to the ED if your symptoms return. Hospital Diagnoses: #HFrEF EF 45% #Mitral Regurgitation #HTN #Acute embolic stroke #A-fib with RVR #Left Upper extremity weakness The patient's management plan was discussed with my attending physician Dr. Potts. Nataly Jones MD, PGY-2 Time Spent with Patient Time attestation: Total time spent providing and/or coordinating discharge services: Time spent: Greater than 30 minutes Home Health Home Health Referral Orders: 03/17/25 09:38 Home Health Referral Routine Reason For Exam: PT Home-Bound The patient must either because of illness or injury, need the aid of supportive devices such as crutches, canes, wheelchairs, and walkers; the use of special transportation; or the assistance of another person in order to leave their place of residence; OR have a condition such that leaving his or her home is medically contraindicated. In addition, the patient also meets the following criteria: patient is normally unable to leave the home and leaving home requires considerable taxing effort. Addendum to Home Health Certification Practitioner's Certification: I certify that the patient has been under my care in the hospital and the care of attending physician (see below). We had a [id number] encounter on (see date below). My clinical findings indicate that the patient is home bound per the above criteria and the Home Health Services noted in these orders are medically necessary. The primary reason for the [id number] encounter is related to the fact that the patient requires home health services. Date Certifying [facility] Physician Encounter: 03/13/25 Physician's Name who will Assume Oversight for Services: Lety Warner Physician's Phone No.who will Assume Oversight for Service: SENIOR FUNCTIONAL ANALYST - Community Resources: No PT to Evaluate: Yes PT to evaluate and provide a treatmnet plan to increase patient's mobility and strength. Wound Care: No IV Therapy: No RN Safety Evaluation: Yes RN to evaluate and create a plan of care that will produce positive outcomes. Palliative Treatment: No Palliative treatment and evaluate the need for hospice. Home Health Aide - Personal Care: No Home Health Aide to assist with any ADL's. Exam Vital Signs Temp Pulse Resp BP Pulse Ox O2 Del Method O2 Flow Rate 98.3 F 66 18 126/58 L 98 Room Air 2 03/17/25 10:50 03/17/25 10:50 03/17/25 10:50 03/17/25 10:50 03/17/25 10:50 03/17/25 10:50 03/16/25 04:00 Narrative Exam GENERAL: AOx2, no acute distress HEENT: NC/AT, mucous membranes moist, bilateral sclera anicteric CARDIOVASCULAR: regular rate and rhythm, S1/S2 present, no murmurs appreciated PULMONARY: clear to auscultation bilaterally, no rales/rhonchi/wheezes ABDOMINAL: soft, non-tender, non-distended, no rebound/guarding, bowel sounds present EXTREMITIES: no peripheral edema, mild weakness L mechanical service representative strength SKIN: warm and dry, intact, no rashes NEURO: CN II-XII grossly intact, no focal deficits, alert, following commands Discharge Plan Plan Patient Disposition: Home w/HOME HEALTH Prescriptions/Referrals Prescriptions/Med Rec: New Eliquis 5 mg tablet 5 mg PO BID Qty: 60 0RF metoprolol succinate 100 mg tablet extended release 24 hr 100 mg PO QDAY Qty: 30 0RF aspirin 81 mg capsule 81 mg PO QDAY Qty: 30 0RF atorvastatin 40 mg tablet 40 mg PO QDAY Qty: 30 0RF furosemide [Lasix] 40 mg tablet 40 mg PO QDAY Qty: 30 0RF Continued lisinopril 10 mg tablet 10 mg PO QDAY gabapentin 300 mg capsule 300 mg PO BID Referrals: Stalin Alonzo MD [Physician, Cardiology] Lety Warner MD [Primary Care Provider, Family Practice] Jered Wu MD [Physician, Neurology] Patient/Caregiver Discharge Instructions Other Discharge Activity Instructions:: Continue taking aspirin 81mg daily, Eliquis 5mg twice a day, Lasix 40mg daily, Lisinopril 10mg, atorvastatin 40mg da rickie, and metoprolol 100mg once a day as management for your heart failure, atrial fibrillation and stroke prevention. Follow up with neurology, cardiology, and primary doctor in 1-2 weeks. Please continue home medications as prescribed. Please return to the ED if your symptoms return. Education Materials: AFL/Afib, Coping with Heart Failure, Heart Failure Dc, ED Atrial Fibrillation, ED About Arrhythmias Print Language: [place] Stand Alone Forms: Rocio Award Info., Patient Portal Info Letter Discharge Order Discharge Orders: Discharge (Routine); Ordered 03/17/25 Ordered By: Tamiko Wu Quality Discharge Quality Measures VTE therapy
--- NOTE | 2025-03-18 09:22 | PC.CC ---
final dc summary sent to [facility]
== END 2025-03-17 10:50 | disposition home health service (06) | DRG 308 ==
LOC: SERX 13:08 → SERHOLD 14:00 → S2NX 15:57
PROVIDERS: Internal Medicine Cardiovascular Disease; Student in an Organized Health Care Education/Training Program; Admitting Provider Internal Medicine; Emergency Provider Emergency Medicine; PCP Family Medicine; Visit Provider Internal Medicine
PROC: (CPT 93312; principal; 2025-03-15 13:30)
DX: I48.91 Unspecified atrial fibrillation (principal); I50.33 Acute on chronic diastolic (congestive) heart failure; I63.40 Cerebral infarction due to embolism of unspecified cerebral artery; I11.0 Hypertensive heart disease with heart failure; G89.29 Other chronic pain; I48.92 Unspecified atrial flutter; I69.30 Unspecified sequelae of cerebral infarction; I65.21 Occlusion and stenosis of right carotid artery; Z79.01 Long term (current) use of anticoagulants; Z96.641 Presence of right artificial hip joint; I07.1 Rheumatic tricuspid insufficiency; Z79.82 Long term (current) use of aspirin; Z79.899 Other long term (current) drug therapy
CPT/HCPCS: 36415; 70450; 70546; 70548; 70553; 71045; 80053; 80061; 83036; 83735; 83880; 84100; 84443; 84484; 85025; 85610; 85730; 87811; 92507; 92523; 93005; 93306; 93312; 93880; 96374; 97162; 99284; A9577; J1644; J1938; J2250; J3010; J3475; J3490; A9270